=== PATIENT | male | born 1940 | race Caucasian/White ===

== ENCOUNTER 2019-07-24 09:25 | Outpatient (CLI) | payer MEDICARE, SELFPAY ==
--- NOTE | 2019-07-24 11:00 | NEURO_ITS ---
Patient Number: [id number] Impression: # Complains of gait dysfunction. History of multiple back surgeries. # Poor responses with decreased amplitude of peroneal nerves more than posterior tibial nerves. # Neurogenic changes in muscles bilaterally. # Findings suggestive of higher involvement with residual effect; could be related to surgeries. Nerve Conduction Studies Anti Sensory Summary Table Stim Site NR Peak (ms) P-T Amp (?V) Site1 Site2 Delta-P (ms) Dist (cm) Elmo (m/s) Left Sup Fibular Anti Sensory (Ant Lat Mall) 14 cm 3.9 8.4 14 cm Ant Lat Mall 3.9 16.0 41 Right Sup Fibular Anti Sensory (Ant Lat Mall) 14 cm 3.3 11.1 14 cm Ant Lat Mall 3.3 16.0 48 Left Sural Anti Sensory (Lat Mall) Right Sural Anti Sensory (Lat Mall) Calf 3.4 16.4 Calf Lat Mall 3.4 16.0 47 Motor Summary Table Stim Site NR Onset (ms) O-P Amp (mV) Site1 Site2 Delta-0 (ms) Dist (cm) Elmo (m/s) Left Peroneal Motor (Vastus Med) Ankle 5.9 0.4 Popit Ankle 8.3 35.0 42 Popit 14.2 0.1 Right Peroneal Motor (Vastus Med) Ankle 5.1 0.2 Popit Ankle 8.6 36.0 42 Popit 13.7 0.2 Left Tibial Motor (Abd Ferrari Brev) Ankle 5.5 1.2 Knee Ankle 8.3 40.0 48 Knee 13.8 1.0 Right Tibial Motor (Abd Ferrari Brev) Ankle 6.0 2.1 Knee Ankle 9.9 41.0 41 Knee 15.9 1.3 F Wave Studies NR F-Lat (ms) L-R F-Lat (ms) Left Peroneal (Mrkrs) (EDB) 59.06 0.00 Right Peroneal (Mrkrs) (EDB) 59.06 0.00 Left Tibial (Mrkrs) (Abd Hallucis) 59.85 2.46 Right Tibial (Mrkrs) (Abd Hallucis) 57.39 2.46 EMG Side Muscle Nerve Root Ins Act Fibs Amp Dur Recrt Comment Right AntTibialis Dp Br Fibular L4-5 Nml Nml Decr >12ms Reduced Right Gastroc Tibial S1-2 Nml Nml Decr >12ms Reduced Right Fibularis Long Sup Br Fibular L5-S1 Nml Nml Decr >12ms Reduced Right Flex Dig Long Tibial L5-S2 Nml Nml Nml Nml Nml Right Ext Dig Brev Dp Br Fibular L5, S1 Nml Nml Decr >12ms Reduced Left AntTibialis Dp Br Fibular L4-5 Nml Nml Decr >12ms Reduced Left Gastroc Tibial S1-2 Nml Nml Decr >12ms Reduced Left Fibularis Long Sup Br Fibular L5-S1 Nml Nml Decr >12ms Reduced Left Flex Dig Long Tibial L5-S2 Nml Nml Nml Nml Nml Left Ext Dig Brev Dp Br Fibular L5, S1 Nml Nml Decr >12ms Reduced Right QuadratusFem QuadFemoris L4-5, S1 Nml Nml Decr >12ms Reduced Left QuadratusFem QuadFemoris L4-5, S1 Nml Nml Decr >12ms Reduced MTDD
== END 2019-07-24 09:26 | disposition home or self-care (01) ==
PROVIDERS: PCP Internal Medicine
DX: M43.16 Spondylolisthesis, lumbar region (principal); G62.9 Polyneuropathy, unspecified; I99.8 Other disorder of circulatory system; R94.131 Abnormal electromyogram [EMG]
CPT/HCPCS: 95886; 95910

== ENCOUNTER 2020-04-30 08:17 | Outpatient (CLI) | payer MEDICARE, SELFPAY ==
[2020-04-30 08:38] LABS: Basophils Absolute Auto 0.1 K/mm3 (0.0-0.1); Basophils Percent Auto 1.1 % (0.2-1.2); Eosinophils Absolute Auto 0.2 K/mm3 (0-0.3); Eosinophils Percent Auto 3.3 % (0-4.4); Hematocrit 39.9 % (42.0-52.0); Hemoglobin 13.3 g/dL (14.0-18.0); Immature Granulocyte Absolute 0.02 K/mm3 (0.00-0.031); Immature Granulocyte Percent A 0.4 % (0-0.5); Lymphocytes Absolute Auto 1.06 K/mm3 (0.9-3.2); Lymphocytes Percent Auto 19.7 % (18.3-44.2); Mean Corpuscular HGB Conc 33.3 g/dl (32-36); Mean Corpuscular Hemoglobin 28.5 pg (26-34); Mean Corpuscular Volume 85.6 fl (80-100); Mean Platelet Volume 8.7 fl (7.4-10.4); Monocytes Absolute Auto 0.4 K/mm3 (0.1-0.6); Neutrophils Absolute Auto 3.6 K/mm3 (1.3-6.7); Neutrophils Percent Auto 67.5 % (45.5-73.1); Platelet Count Result 204 k/mm3 (150-375); Red Blood Count 4.66 M/mm3 (4.6-6.20); Red Cell Distribution Width 13.6 % (11.5-14.5); White Blood Count 5.4 K/mm3 (4.5-10.0)
[2020-04-30 08:51] LABS: Alanine Aminotransferase 26 U/L (4-50); Alkaline Phosphatase 92 U/L (38-126); Anion Gap 4 mmol/L (8-16); Aspartate Amino Transferase 31 U/L (17-59); Bilirubin,Total 0.5 mg/dL (0.2-1.3); Blood Urea Nitrogen 17 mg/dL (9-20); Calcium 9.3 mg/dL (8.4-10.2); Carbon Dioxide 31 mmol/L (22-30); Chloride 104 mmol/L (98-107); Cholesterol 189 mg/dL (0-200); Estimated Glomerular Filt Rate > 60; Glucose 109 mg/dL (75-110); HDL Direct 49 mg/dL; Potassium 3.9 mmol/L (3.4-5.0); Sodium 139 mmol/L (137-145); Triglycerides 89 mg/dL (<150)
[2020-04-30 09:03] LABS: LDL Cholesterol Direct 106 mg/dL
== END 2020-04-30 08:18 | disposition home or self-care (01) ==
PROVIDERS: PCP Internal Medicine; Visit Provider Nurse Practitioner
DX: I10 Essential (primary) hypertension (principal); Z13.220 Encounter for screening for lipoid disorders
CPT/HCPCS: 36415; 80053; 80061; 85025

== ENCOUNTER → 2020-07-04 00:23 | Outpatient (CLI) | payer MEDICARE, SELFPAY ==
[2020-07-05 00:17] LABS: SARS-CoV-2 RNA PCR Negative
== END ==
PROVIDERS: PCP Internal Medicine; Visit Provider Internal Medicine Gastroenterology
DX: Z01.812 Encounter for preprocedural laboratory examination (principal); Z20.822 Contact with and (suspected) exposure to COVID-19
CPT/HCPCS: C9803; U0003; U0005

== ENCOUNTER 2020-07-08 01:02 | Day surgery (SDC) | payer MEDICARE, SELFPAY ==
[2020-06-18 10:38] VITALS: BMI 34.4
[2020-07-08 06:30] VITALS: BP 136/68; PULSE 84; RESP 18; TEMP 36.4; O2SAT 99
[2020-07-08 06:42] VITALS: BMI 37.3
[2020-07-08] MEDS: LACTATED RINGERS 1,000 ML 150 ML IV CONT (07:11)
--- NOTE | 2020-07-08 07:21 | WPDANESEPPF ---
Anes - Initial Pre Proc Eval Procedure: Operation Date: 07/08/20 08:00 Proposed Procedures p Screening Colonoscopy - Timoteo Farrell MD Date/Time: 07/08/20 07:21 Surgeon: Timoteo Farrell MD Pre Op Diagnosis: Neoplasm Screening Patient Data Age: 79 Gender: M Height: 5 ft 10 in Weight: 118 kg Allergies Allergy/AdvReac Type Severity Reaction Status Date / Time naproxen Allergy Unknown Hives Verified 07/08/20 06:42 Home Medications Medication Instructions Recorded Confirmed Type hydrochlorothiazide 12.5 mg tablet 12.5 mg PO DAILY #90 tablet 02/11/20 06/18/20 Rx aspirin 325 mg tablet 325 mg PO DAILY 05/07/20 06/18/20 History diclofenac potassium 50 mg tablet 50 mg PO BID PRN #30 tablet 05/07/20 06/18/20 Rx zinc 50 mg tablet 50 mg PO DAILY 05/07/20 06/18/20 History losartan 100 mg tablet 100 mg PO DAILY #90 tablet 05/13/20 06/18/20 Rx hydroxyzine HCl 50 mg tablet 50 mg PO QPM #30 tablet 05/20/20 06/18/20 Rx amlodipine 5 mg tablet 5 mg PO DAILY #90 tablet 06/08/20 06/18/20 Rx doxazosin 8 mg tablet 8 mg PO DAILY #90 tablet 06/08/20 06/18/20 Rx sodium,potassium,mag sulfates See Rx Instructions .ROUTE 06/10/20 Rx [Suprep Bowel Prep Kit] .COMPLEX #1 ml Patient hx anesthesia problems: none Family hx anesthesia problems: none PMFSH Past Medical History Medical History Carpal tunnel syndrome HTN (hypertension) Thoracic aortic aneurysm Surgical History Surgical History H/O eye surgery H/O knee surgery H/O sinus surgery History of appendectomy History of back surgery History of carpal tunnel surgery History of nasal surgery Family History Family History Father Diabetes mellitus Heart attack Lung cancer Mother Family history of Alzheimer's disease Social History Social History Years smoked: 10 Smoking status: Former smoker Tobacco type: cigarettes Alcohol intake: current Alcohol use details: rarely Living arrangements: with family Gender identity (if verbalized by the patient): Male Spiritual care concerns: No Anes - Eval Final PreProcedure Day of Procedure 07/08/20 07:21 Patient weight: obese Heart: regular rate and rhythm Lungs: clear to auscultation Airway: Mallampati scale class II Neurological: alert and oriented Last oral intake: >/= 8 hours ASA classification: III Emergent: no Anesthetic plan: proceed Anesthesia type and monitoring: general GIVS and standard monitoring Informed Consent: The patient's anesthetic plan and its attendant risks and benefits were discussed with the patient/family/POA. Questions were solicited and answers provided to the satisfaction of the patient/family/POA.
--- NOTE | 2020-07-08 08:22 | PM.HPGS ---
History of Present Illness History of Present Illness Consent: Risks, benefits, and alternatives have been discussed and questions answered. Patient agrees to proceed with procedure. Chief complaint: Neoplasm Screening Narrative: Hilario Chilel is a 79 year old male here for screening colonoscopy, had polyps in the past but last colonoscopy 2013 without polyps Review of Systems Constitutional: Constitutional: Denies headache(s) and Denies weakness Eyes: Eyes: Denies blurry vision ENT: Reports Normal hearing present, Denies headache(s) and Denies neck pain Cardiovascular: Cardiovascular: Denies chest pain and Denies dyspnea Respiratory: Respiratory: Denies dyspnea Gastrointestinal: Gastrointestinal: Reports no additional gastrointestinal complaints Genitourinary: Genitourinary: Denies dysuria Musculoskeletal: Musculoskeletal: Denies neck pain Integumentary/Breasts: Skin/Breast: Denies dry skin Neurologic: Reports Normal hearing present, Denies headache(s) and Denies weakness Psychiatric: Psychiatric: Denies anxiety Endocrine: Endocrine: Denies change in body appearance Hematologic/Lymphatic: Hematologic/Lymphatic: Denies easy bleeding Allergic/Immunologic: Allergic/Immunologic: Denies urticaria PMFSH Past Medical History Medical History Carpal tunnel syndrome HTN (hypertension) Thoracic aortic aneurysm Surgical History Surgical History H/O eye surgery H/O knee surgery H/O sinus surgery History of appendectomy History of back surgery History of carpal tunnel surgery History of nasal surgery Family History Family History Father Diabetes mellitus Heart attack Lung cancer Mother Family history of Alzheimer's disease Social History Social History Years smoked: 10 Smoking status: Former smoker Tobacco type: cigarettes Alcohol intake: current Alcohol use details: rarely Living arrangements: with family Gender identity (if verbalized by the patient): Male Spiritual care concerns: No Meds Home Medications and Allergies Home Medications Medication Instructions Recorded Confirmed Type hydrochlorothiazide 12.5 mg tablet 12.5 mg PO DAILY #90 tablet 02/11/20 06/18/20 Rx aspirin 325 mg tablet 325 mg PO DAILY 05/07/20 06/18/20 History diclofenac potassium 50 mg tablet 50 mg PO BID PRN #30 tablet 05/07/20 06/18/20 Rx zinc 50 mg tablet 50 mg PO DAILY 05/07/20 06/18/20 History losartan 100 mg tablet 100 mg PO DAILY #90 tablet 05/13/20 07/08/20 Rx hydroxyzine HCl 50 mg tablet 50 mg PO QPM #30 tablet 05/20/20 06/18/20 Rx amlodipine 5 mg tablet 5 mg PO DAILY #90 tablet 06/08/20 06/18/20 Rx doxazosin 8 mg tablet 8 mg PO DAILY #90 tablet 06/08/20 06/18/20 Rx sodium,potassium,mag sulfates See Rx Instructions .ROUTE 06/10/20 Rx [Suprep Bowel Prep Kit] .COMPLEX #1 ml Allergies Allergy/AdvReac Type Severity Reaction Status Date / Time naproxen Allergy Unknown Hives Verified 07/08/20 06:42 Exam Const: General: comfortable and no acute distress HENMT: General nose exam: Normal nares present Eyes: General: appearance normal, both eyes and all related structures Neck: Neck: no JVD Resp: Auscultation: clear to auscultation bilaterally Cardio: Rate: regular rate Rhythm: regular rhythm GI: Inspection: non-distended GI Palp: Yes Soft to palpation Skin: General skin exam: normal color Neuro: General: gait normal Speech: normal speech Extrem: General: normal to inspection Psych: Mental Status: mental status grossly normal Assessment and Plan Assessment and plan (1) Screening for colon cancer: Code(s): Z12.11 - Encounter for screening for malignant neoplasm of colon Status: Acute Assessment and Plan: proceed with colonoscopy
[2020-07-08 08:58] VITALS: BP 121/78; PULSE 59; RESP 13; O2SAT 100
[2020-07-08 09:08] VITALS: BP 131/82; PULSE 69; RESP 21; O2SAT 100
[2020-07-08 09:18] VITALS: BP 124/73; PULSE 72; RESP 18; O2SAT 100
== END 2020-07-08 09:25 | disposition home or self-care (01) ==
PROVIDERS: PCP Internal Medicine; Visit Provider Internal Medicine Gastroenterology
PROC: 0DJD8ZZ Inspection of Lower Intestinal Tract, Via Natural or Artificial Opening Endoscopic (ICD-10-PCS; CPT 45378; principal; 2020-07-08 08:00)
DX: Z12.11 Encounter for screening for malignant neoplasm of colon (principal); Z86.010 Personal history of colon polyps; I10 Essential (primary) hypertension; I71.2 Thoracic aortic aneurysm, without rupture; Z87.891 Personal history of nicotine dependence; E66.9 Obesity, unspecified; Z68.37 Body mass index [BMI] 37.0-37.9, adult
CPT/HCPCS: G0105; J2704; J7120

== ENCOUNTER 2020-08-13 08:32 | Outpatient (CLI) | payer MEDICARE, SELFPAY ==
--- NOTE | ~2020-08-13 | XR_ITS ---
EXAMINATION: CT abdomen pelvis wo/w con, XR abdomen/kub 1V DATE: 08/13/2020 09:22 INDICATION: Gross hematuria. TECHNIQUE: 1. Computed tomography (CT) of the abdomen and pelvis was performed without intravenous contrast. CT of the abdomen and pelvis was then performed with a total of 130 mL Omnipaque-350 intravenous contras t using a double-bolus technique for simultaneous opacification of the renal parenchyma and renal col lecting system. The dose-length product was 3039.12 mGy-cm. 2. A single view of the abdomen was obtained on 2 radiographs. COMPARISON: None FINDINGS: CT: Calcified right lower lobe nodule, calcified right hilar lymph nodes and a few tiny hepatic and splen ic calcifications, all consistent with old granulomatous disease. Heart size is normal. No pericardia l or pleural effusion. Enlargement of the central pulmonary arteries which can be seen with pulmonary arterial hypertension. A few subcentimeter low-attenuation hepatic cysts. Gallbladder and pancreas a re normal. Bilateral adrenal nodules measuring 1.7 cm with low-attenuation consistent with adenoma on the left and measuring 1.5 cm on the right without change since 2018 also most likely representing a n adenoma. Kidneys enhance symmetrically. Bilateral low-attenuation nonenhancing renal cysts the larger on the r ight measuring 3.3 cm maximal diameter. No urolithiasis or hydronephrosis. Partially duplicated left renal collecting system with separate renal pelvises sees draining the upper and lower poles of the l eft kidney which fuse to a single draining ureter. Left renal collecting system and ureter is opacifi ed in its entirety with no evident urothelial irregularities. The majority of the small caliber decom pressed right ureter remains unopacified with contrast. There is mild haziness and stranding in the f at surrounding the bladder suggesting cystitis. Mildly irregular mucosal contour in the posterior lefty dder which could be related to cystitis, malignancy or trabeculation related to chronic outlet obstru ction from the enlarged prostate which measures up to 5.1 x 4.3 cm. No abnormal bowel wall thickening or obstruction. The appendix is not visualized. No free intraperito lorena gas or fluid. No pathologically enlarged abdominal or pelvic lymphadenopathy. There is calcified atherosclerosis of the aorta and many of the other arteries. Incidentally noted retroaortic left ana maria al vein. Mild lumbar levoscoliosis with severe spondylosis. Postoperative change of prior L3-L5 meme ectomies and anterior spinal fusion with bone graft cages at L4-L5 and L5-S1. Posterior spinal fusion with bilateral plate and pedicle screw fixations at L5-S1. Additional posterior fusion with solid sabino ne grafting but without associated instrumentation extending cephalad across the facet joints to the level of L2. Interspinous process device at L1-L2. Moderate bilateral hip osteoarthritis. ABDOMEN RADIOGRAPH(S): A couple phleboliths in the left hemipelvis. Normal bowel gas pattern. Postoperative changes in the l umbar spine as previously detailed. IMPRESSION: 1. Bilateral renal cysts. Otherwise normal kidneys with no urolithiasis. 2. Irregular mucosal contour the posterior bladder with surrounding inflammatory stranding. Appearanc e suggests trabeculation and cystitis likely related to chronic outlet obstruction from the enlarged prostate. Correlate with urinalysis and consider cystoscopy to exclude a bladder urothelial malignanc y. Reviewed, dictated and finalized at location B. IMPRESSION: 1. Bilateral renal cysts. Otherwise normal kidneys with no urolithiasis. 2. Irregular mucosal contour the posterior bladder with surrounding inflammator y stranding. Appearance suggests trabeculation and cystitis likely
[2020-08-13 09:00] LABS: Estimated Glomerular Filt Rate > 60
== END 2020-08-13 08:33 | disposition home or self-care (01) ==
PROVIDERS: PCP Internal Medicine; Visit Provider Urology
DX: R31.0 Gross hematuria (principal); N28.1 Cyst of kidney, acquired
CPT/HCPCS: 74018; 74178; Q9967

== ENCOUNTER 2020-09-17 08:14 | Outpatient (CLI) | payer MEDICARE, SELFPAY ==
--- NOTE | 2020-09-17 08:00 | ECG_ITS ---
Measurements Intervals [place] Rate: 65 P: 78 HI: 167 QRS: 9 QRSD: 118 T: 30 QT: 411 QTc: 430 Interpretive Statements SINUS RHYTHM MINIMAL Q WAVES- HIGH LATERAL LEADS BASELINE ARTIFACT- I, III, AVR, AVL, AVF, V6 BORDERLINE ECG Electronically Signed On 09-17-2020 9:16:21 CDT by Chapin Chung D.O.
[2020-09-17 08:45] LABS: Basophils Absolute Auto 0.1 K/mm3 (0.0-0.1); Basophils Percent Auto 0.9 % (0.2-1.2); Eosinophils Absolute Auto 0.2 K/mm3 (0-0.3); Eosinophils Percent Auto 2.7 % (0-4.4); Hematocrit 40.4 % (42.0-52.0); Hemoglobin 13.4 g/dL (14.0-18.0); Immature Granulocyte Absolute 0.01 K/mm3 (0.00-0.031); Immature Granulocyte Percent A 0.2 % (0-0.5); Lymphocytes Absolute Auto 1.15 K/mm3 (0.9-3.2); Lymphocytes Percent Auto 19.7 % (18.3-44.2); Mean Corpuscular HGB Conc 33.2 g/dl (32-36); Mean Corpuscular Volume 84.3 fl (80-100); Mean Platelet Volume 8.6 fl (7.4-10.4); Monocytes Absolute Auto 0.4 K/mm3 (0.1-0.6); Neutrophils Absolute Auto 4.1 K/mm3 (1.3-6.7); Neutrophils Percent Auto 69.5 % (45.5-73.1); Platelet Count Result 210 k/mm3 (150-375); Red Blood Count 4.79 M/mm3 (4.6-6.20); Red Cell Distribution Width 13.8 % (11.5-14.5); White Blood Count 5.8 K/mm3 (4.5-10.0)
[2020-09-17 08:58] LABS: INR 0.9; Partial Thromboplastin Time 33.3 SECONDS (22.3-36.8)
[2020-09-17 09:05] LABS: Anion Gap 6 mmol/L (8-16); Blood Urea Nitrogen 17 mg/dL (9-20); Calcium 8.7 mg/dL (8.4-10.2); Carbon Dioxide 30 mmol/L (22-30); Chloride 105 mmol/L (98-107); Estimated Glomerular Filt Rate > 60; Glucose 104 mg/dL (75-110); Potassium 3.8 mmol/L (3.4-5.0); Sodium 141 mmol/L (137-145)
== END 2020-09-17 08:15 | disposition home or self-care (01) ==
LOC: ANHSURGERY 08:19
PROVIDERS: PCP Internal Medicine; Visit Provider Urology
DX: R31.0 Gross hematuria (principal); I10 Essential (primary) hypertension; Z01.818 Encounter for other preprocedural examination; I45.9 Conduction disorder, unspecified
CPT/HCPCS: 36415; 80048; 85025; 85610; 85730; 93005

== ENCOUNTER → 2020-09-19 06:56 | Outpatient (CLI) | payer MEDICARE, SELFPAY ==
[2020-09-19 20:53] LABS: SARS-CoV-2 RNA PCR Negative
== END ==
PROVIDERS: PCP Internal Medicine; Visit Provider Urology
DX: Z01.812 Encounter for preprocedural laboratory examination (principal); Z20.822 Contact with and (suspected) exposure to COVID-19
CPT/HCPCS: C9803; U0003; U0005

== ENCOUNTER 2020-09-22 01:31 | Day surgery (SDC) | payer MEDICARE, SELFPAY ==
[2020-09-11 14:26] VITALS: BMI 36.3
[2020-09-22] VITALS (15 sets, daily range): BP systolic 112–147; BP diastolic 58–82; PULSE 60–74; RESP 10–20; TEMP 36.3–37.1; O2SAT 97–100; BMI 37.3
[2020-09-22] MEDS: LACTATED RINGERS 1,000 ML 30 ML IV CONT (07:12)
--- NOTE | 2020-09-22 07:12 | WPDHPUPDATE1 ---
History and Physical Update Update Date/Time: 09/22/20 07:12 History and Physical has been reviewed, including an updated exam of the patient. There are NO changes in the patient's condition. Risks, benefits, and alternatives have been discussed and questions answered. Patient agrees to proceed with procedure. Proceed with cysto, bladder biopsy with fulguration
--- NOTE | 2020-09-22 07:22 | WPDANESEPPF ---
Anes - Initial Pre Proc Eval Procedure: Operation Date: 09/22/20 08:30 Proposed Procedures p Cystoscopy Bladder Biopsy Fulguration, - Kuldip Tong MD s Possible Trans Urethral Resection Bladder Tumor - Kuldip Tong MD Date/Time: 09/22/20 07:22 Surgeon: Kuldip Tong MD Pre Op Diagnosis: gross hematuria Patient Data Age: 80 Gender: M Height: 1.78 m Weight: 117.8 kg Last Vital Signs Temp 37.1 C 09/22/20 07:19 Pulse 65 09/22/20 07:19 Resp 20 09/22/20 07:19 BP 136/81 09/22/20 07:19 Pulse Ox 99 09/22/20 07:19 Allergies Allergy/AdvReac Type Severity Reaction Status Date / Time naproxen Allergy Unknown Hives Verified 09/22/20 06:57 Home Medications Medication Instructions Recorded Confirmed Type aspirin 325 mg tablet 325 mg PO DAILY 05/07/20 09/22/20 History diclofenac potassium 50 mg tablet 50 mg PO BID PRN #30 tablet 05/07/20 09/22/20 Rx zinc 50 mg tablet 50 mg PO DAILY 05/07/20 09/22/20 History hydroxyzine HCl 50 mg tablet 50 mg PO QPM #30 tablet 08/25/20 09/22/20 Rx amlodipine 5 mg PO QAM 09/11/20 09/22/20 History apple cider vinegar 300 mg PO TID 09/11/20 09/22/20 History chromium-brindal scales [Garcinia 1 tablet PO TID 09/11/20 09/22/20 History Cambogia] doxazosin 8 mg PO HS 09/11/20 09/22/20 History hydrochlorothiazide 12.5 mg PO QAM 09/11/20 09/22/20 History hydrocortisone 1 applic TOPICAL BID PRN 09/11/20 09/22/20 History lactobacillus combination no.8 3,000 mmu cells PO DAILY 09/11/20 09/22/20 History [Adult Probiotic] losartan 100 mg PO QAM 09/11/20 09/22/20 History vit C,Y-Pq-ngspe-lutein-zeaxan 1 tablet PO BID 09/11/20 09/22/20 History [PreserVision AREDS-2] ECG: Date of Service: 09/17/20 Procedure(s): CA 12 lead EKG Accession Number(s): [id number] cc: ~ ADDENDUM Measurements Intervals [place] Rate: 65 P: 78 GA: 167 QRS: 9 QRSD: 118 T: 30 QT: 411 QTc: 430 Interpretive Statements SINUS RHYTHM INTRAVENTRICULAR CONDUCTION DELAY MINIMAL Q WAVES- HIGH LATERAL LEADS BASELINE ARTIFACT- I, III, AVR, AVL, AVF, V6 BORDERLINE ECG Electronically Signed On 09-17-2020 9:16:36 CDT by Chapin Chung D.O. Patient hx anesthesia problems: none Family hx anesthesia problems: none [facility] Past Medical History Medical History (Updated 09/22/20 @ 07:26 by Niko Johnson MD) Arthritis Bladder tumor BPH (benign prostatic hyperplasia) Carpal tunnel syndrome Chronic GERD HTN (hypertension) CARMELINA (obstructive sleep apnea) Thoracic aortic aneurysm 4.7 cm in 2018 Surgical History Surgical History H/O eye surgery H/O knee surgery H/O sinus surgery History of appendectomy History of back surgery History of carpal tunnel surgery History of nasal surgery Family History Family History Father Diabetes mellitus Heart attack Lung cancer Mother Family history of Alzheimer's disease Social History Social History Smoking packs per day: 1 Smoking cigarettes per day: 20.0 Years smoked: 10 Smoking pack-years: 10.00 Smoking status: Former smoker Tobacco type: cigarettes Smoking end date: 04/28/1968 Alcohol intake: former Alcohol use details: SOCIALLY IN PAST Substance use: never Living arrangements: with family Additional living arrangements comments: Gender identity (if verbalized by the patient): Male Spiritual care concerns: No Anes - Eval Final PreProcedure Day of Procedure 09/22/20 07:22 Patient weight: obese Heart: regular rate and
[2020-09-22] MEDS: ceFAZolin 2 GM/D5W 50 ML 2 GM/50 ML BAG IVPB (08:29)
[2020-09-22] MEDS: LIDOCAINE HCL 2% GEL UROJET 10 ML PKG MUCOUS MEM (08:51)
--- NOTE | 2020-09-22 09:18 | PM.PROC ---
Procedure Note - Detailed Date of procedure: 09/22/20 Pre-op diagnosis: gross hematuria Post-op diagnosis: same Procedure performed: Transurethral resection of prostate with bladder fulguration Description of procedure: Patient is taken the operative suite and correctly identified. Once anesthesia was obtained was placed in dorsal lithotomy position prepped draped usual sterile fashion. Twenty-two Portuguese scope was inserted into the urethra. There are no urethral strictures. The prostate is enlarged with lateral lobe hypertrophy and a very elevated median bar area was very difficult to get the scope over the ridge into the bladder. Once this was accomplished the bladder was inspected he had some little generalized oozing on the left lateral wall from vascular. It was hard area to reach into and thus we simply used the rollerball to fulgurate this area. No other discrete papillary tumors were noted at this time. He did have quite a bit of edema around the bladder neck and then had quite a bit of oozing from this area. At this point time given his prior symptoms with a hematuria was decided proceed with resection of the bolus edema area. This required transurethral resection of his prostate to completely get adequate control. This was performed from the bladder neck to the verumontanum. Hemostasis was achieved with electrocautery. At termination of procedure was good hemostasis and he had an open channel. 2% viscous lidocaine was inserted into the urethra. Twenty-four Portuguese [address] was then placed. 20 cc was placed in the balloon. Patient will be admitted for CBI postoperatively. Anesthesia: GLMA Surgeon: Kuldip Tong MD Drains: Yes Packing: No Pathology: yes Complications: No immediate complications Condition: stable Disposition: PACU
--- NOTE | 2020-09-22 09:50 | SUR.PHASEI ---
O2 removed at 0948.
--- NOTE | 2020-09-22 09:58 | SUR.PHASEI ---
Patient is stable. We are just waiting for room to be ready.
[2020-09-22] MEDS: DEXTROSE 5%/LACTATED RINGERS 1,000 ML 125 ML IV CONT ×2 (11:30→21:55)
--- NOTE | 2020-09-22 11:38 | PC.NURSE ---
This patient, Hilario Chilel, was admitted to 3 [facility] Surg Room 305-01. Report received from BRICE Dooley in PACU. Patient/family oriented to hospital policies and general routines including ID bracelet, bed and alarms, visiting hours, pain management, procedures, bathroom and other care routines, personal items, smoking policy, room service/diet, and visiting hours. Information on how to activate the Rapid Response Team has been discussed. Patient/Family are encouraged to report perceived risks to care and to ask questions if they do not understand what they are told or what they should do.
[2020-09-22] MEDS: hydroCHLOROthiazide 12.5 MG CAPSULE PO (12:34)
[2020-09-22] MEDS: LOSARTAN POTASSIUM 100 MG TABLET PO (13:32)
[2020-09-22] MEDS: HYOSCYAMINE SULFATE 0.125 MG TABLET SUBLINGUAL (16:40)
[2020-09-22] MEDS: DOCUSATE SODIUM 100 MG CAPSULE PO (16:40)
[2020-09-22] MEDS: hydrOXYzine HCL 25 MG TABLET 50 MG PO (17:38)
[2020-09-22] MEDS: DOXAZOSIN MESYLATE 4 MG TABLET 8 MG PO (21:57)
[2020-09-23] MEDS: HYDROcodone/acetaminophen (*CRX) 5-325 MG TABLET 1 TAB PO ×2 (01:55→12:17)
[2020-09-23 04:00] VITALS: BP 124/58; PULSE 65; RESP 18; TEMP 36.8; O2SAT 98
[2020-09-23 06:31] LABS: Hematocrit 34.7 % (42.0-52.0); Hemoglobin 11.4 g/dL (14.0-18.0)
[2020-09-23 06:41] LABS: Anion Gap 1 mmol/L (8-16); Blood Urea Nitrogen 14 mg/dL (9-20); Calcium 8.5 mg/dL (8.4-10.2); Carbon Dioxide 31 mmol/L (22-30); Chloride 106 mmol/L (98-107); Estimated CRCL calculation 93 ml/min; Estimated Glomerular Filt Rate > 60; Glucose 114 mg/dL (75-110); Potassium 3.9 mmol/L (3.4-5.0); Sodium 138 mmol/L (137-145)
[2020-09-23 08:00] VITALS: BP 152/79; PULSE 62; RESP 20; TEMP 36.6; O2SAT 100
[2020-09-23] MEDS: amLODIPine BESYLATE 5 MG TABLET PO (08:11)
[2020-09-23] MEDS: ACIDOPHILUS/BULGARICUS CHEWABLE TABLET 1 TABLET PO (08:12)
[2020-09-23] MEDS: LOSARTAN POTASSIUM 100 MG TABLET PO (08:12)
[2020-09-23] MEDS: hydroCHLOROthiazide 12.5 MG CAPSULE PO (08:13)
[2020-09-23] MEDS: CEPHALEXIN 500 MG CAPSULE PO ×2 (08:13→13:00)
[2020-09-23] MEDS: DOCUSATE SODIUM 100 MG CAPSULE PO (08:13)
--- NOTE | 2020-09-23 09:21 | WPDANESPN ---
Anes - Prog Note Post-Op Date/Time: 09/23/20 09:21 Cardiovascular status: normal Respiratory status: normal Airway patency: baseline Mental status: baseline Post-Op hydration status: normal Vital Signs: Last Vital Signs Temp 36.6 C 09/23/20 08:00 Pulse 62 09/23/20 08:00 Resp 20 09/23/20 08:00 BP 152/79 H 09/23/20 08:00 Pulse Ox 100 09/23/20 08:00 Pain Score (VAS): 2 I/O: Intake & Output 09/22/20 09/23/20 09/23/20 23:59 07:59 15:59 Intake Total 1290 775 225 Output Total 1450 1200 Balance -160 -425 225 Laboratory Tests 09/23/20 05:51 09/23/20 05:51 09/23/20 09/23/20 05:51 05:51 Hgb 11.4 L Hct 34.7 L Sodium 138 Potassium 3.9 Chloride 106 Carbon Dioxide 31 H Anion Gap 1 L BUN 14 Creatinine 0.70 Estim Creat Clear Calc 93 Estimated GFR > 60 Glucose 114 H Calcium 8.5 Post-procedural complaints: none Patient Feedback: Patient satisfied with anesthetic care.
[2020-09-23 12:00] VITALS: BP 146/72; PULSE 75; RESP 20; TEMP 36.7; O2SAT 100
[2020-09-23] MEDS: HYOSCYAMINE SULFATE 0.125 MG TABLET SUBLINGUAL (12:17)
[2020-09-23 14:00] VITALS: BP 137/64; PULSE 77; RESP 20; TEMP 36.6; O2SAT 100
--- NOTE | 2020-09-23 15:30 | WPDUROPN2 ---
Progress Note: A&P Assessment and Plan (1) BPH (benign prostatic hyperplasia): Code(s): N40.0 - Benign prostatic hyperplasia without lower urinary tract symptoms Status: Acute Assessment and Plan: ok to discharge home with the hooper, follow up on September 28 at 10:45 am for hooper removal Subjective Subjective Date/Time Seen: 09/23/20 15:30 POD #1 TURP Patient doing well, tolerating diet, up to chair and ambulating in the room. His urine has remained clear all day without CBI and with activity. Review of Systems Cardiovascular: Cardiovascular: Reports no additional cardiovascular complaints and Denies chest pain Respiratory: Respiratory: Reports no additional respiratory complaints Gastrointestinal: Gastrointestinal: Denies abdominal pain, Denies nausea and Denies vomiting Genitourinary: Genitourinary: Denies hematuria Exam Resp: Effort & Inspection: normal respiratory effort Cardio: Rate: regular rate GI: GI Palp: Yes Soft to palpation and No Tenderness to palpation present (GI) : General: Yes no CVA tenderness Urinary Catheter: Urinary Catheter: patent and draining and urine clear Extrem: General: no edema Objective Data Vital Signs Vital Signs: Vital Signs - 24 hr 09/22/20 16:00 09/22/20 19:55 09/22/20 23:35 Temperature 97.4 F L 97.9 F 98.2 F Pulse Rate 71 66 62 Respiratory Rate 18 18 18 Blood Pressure 138/58 L 123/72 126/61 Pulse Oximetry 99 98 97 09/23/20 04:00 09/23/20 08:00 09/23/20 12:00 Temperature 98.3 F 97.8 F 98.1 F Pulse Rate 65 62 75 Respiratory Rate 18 20 20 Blood Pressure 124/58 L 152/79 H 146/72 H Pulse Oximetry 98 100 100 09/23/20 14:00 Temperature 97.8 F Pulse Rate 77 Respiratory Rate 20 Blood Pressure 137/64 Pulse Oximetry 100 Intake/Output Intake/Output: Intake & Output 09/20/20 09/21/20 09/22/20 09/23/20 23:59 23:59 23:59 23:59 Intake Total 2120 1480 Output Total 3500 1200 Balance -1380 280 Meds/Results Medications: Active Medications Generic Name Dose Route Start Last Admin Trade Name Freq PRN Reason Stop Dose Admin Hydrocodone Bitart/Acetaminophen 1 tab 09/22/20 09:20 09/23/20 12:17 Hydrocodone/Acetaminophen (*Crx) 5-325 Mg Tablet PO 1 tab Q4H PRN Administration Pain Rated 1-6 Amlodipine Besylate 5 mg 09/23/20 09:00 09/23/20 08:11 Amlodipine Besylate 5 Mg Tablet PO 5 mg QAM MAXIMILIANO Administration Cephalexin HCl 500 mg 09/23/20 09:00 09/23/20 13:00 Cephalexin 500 Mg Capsule PO 500 mg QID MAXIMILIANO Administration Docusate Sodium 100 mg 09/22/20 17:00 09/23/20 08:13 Docusate Sodium 100 Mg Capsule PO 100 mg BID MAXIMILIANO Administration Doxazosin Mesylate 8 mg 09/22/20 21:00 09/22/20 21:57 Doxazosin Mesylate 4 Mg Tablet PO 8 mg HS MAXIMILIANO Administration Hydrochlorothiazide 12.5 mg 09/22/20 11:05 09/23/20 08:13 Hydrochlorothiazide 12.5 Mg Capsule PO 12.5 mg QAM [facility] Administration Hydrocortisone 1 applic 09/22/20 10:51 Hydrocortisone (Proctozone-Hc) 2.5% Cream 30 Gm Tube TOPICAL BID PRN Itching Hydroxyzine HCl 50 mg 09/22/20 18:00 09/22/20 17:38 Hydroxyzine Hcl 25 Mg Tablet PO 50 mg QPM MAXIMILIANO Administration Hyoscyamine 0.125 mg 09/22/20 09:20 09/23/20 12:17 Hyoscyamine Sulfate 0.125 Mg Tablet SUBLINGUAL 0.125 mg Q6H PRN Administration Bladder Spasm Lactobacillus Acidophilus 1 tablet 09/23/20 09:00 09/23/20 08:12 Acidophilus/Bulgaricus Chewable Tablet PO 1 tablet DAILY MAXIMILIANO Administration Losartan Potassium 100 mg 09/22/20 11:10 09/23/20 08:12 Losartan Potassium 100 Mg Tablet PO 100 mg QAM [facility] Administration Morphine Sulfate 2 mg 09/22/20 09:20 Morphine Sulfate (*Crx) 2 Mg/Ml Inj IV PUSH Q2H PRN Pain Rated 7-10 Naloxone HCl 0.1 mg 09/22/20 09:20 Naloxone Hcl 0.4 Mg/Ml Vial IV PUSH Q2M PRN Opiate Reversal Non-Formulary Medication 50 mg 09/22/20 10:51 Diclof
== END 2020-09-23 16:45 | disposition home or self-care (01) ==
LOC: ANHSURGERY 06:08 → ANH3MEDSUR 10:52
PROVIDERS: PCP Internal Medicine; Visit Provider Urology
PROC: 0TBB8ZX Excision of Bladder, Via Natural or Artificial Opening Endoscopic, Diagnostic (ICD-10-PCS; CPT 52204; principal; 2020-09-22 08:30)
PROC: 0TBB8ZZ Excision of Bladder, Via Natural or Artificial Opening Endoscopic (ICD-10-PCS; CPT 52601; 2020-09-22 08:30)
DX: N40.0 Benign prostatic hyperplasia without lower urinary tract symptoms (principal); N34.2 Other urethritis; N30.81 Other cystitis with hematuria; Z87.440 Personal history of urinary (tract) infections; I10 Essential (primary) hypertension; G47.33 Obstructive sleep apnea (adult) (pediatric); E66.9 Obesity, unspecified; Z68.37 Body mass index [BMI] 37.0-37.9, adult; Z87.891 Personal history of nicotine dependence
CPT/HCPCS: 52601; 52234; 36415; 80048; 85014; 85018; 88305; A9270; J0690; J2405; J2704; J3010; J7120; J7121

== ENCOUNTER 2021-04-27 15:12 | Outpatient (CLI) | payer MEDICARE, SELFPAY ==
--- NOTE | ~2021-04-27 | US_ITS ---
EXAMINATION: US venous doppler LE RT DATE: 04/27/2021 16:07 INDICATION: Right lower limb swelling. TECHNIQUE: Grayscale ultrasound images without and with compression and Doppler ultrasound images of the right lower extremity veins were obtained. COMPARISON: None. FINDINGS: The visualized portions of right common femoral vein, profunda (deep) femoral vein, femoral vein, pop liteal vein, peroneal veins, posterior tibial veins, and greater saphenous vein outflow are patent. S ubcutaneous edema is noted in the calf. IMPRESSION: 1. No deep venous thrombosis. Reviewed, dictated and finalized at location A. DESIGN MECHANICAL ENGINEER
== END 2021-04-27 15:13 | disposition home or self-care (01) ==
PROVIDERS: PCP Internal Medicine; Visit Provider Nurse Practitioner
DX: R60.9 Edema, unspecified (principal); M79.661 Pain in right lower leg
CPT/HCPCS: 93971

== ENCOUNTER 2021-07-27 06:48 | Outpatient (CLI) | payer MEDICARE, SELFPAY ==
[2021-07-27 07:52] LABS: Basophils Absolute Auto 0.1 K/mm3 (0.0-0.1); Basophils Percent Auto 0.9 % (0.2-1.2); Eosinophils Absolute Auto 0.2 K/mm3 (0-0.3); Eosinophils Percent Auto 3.1 % (0-4.4); Hematocrit 37.8 % (42.0-52.0); Hemoglobin 12.6 g/dL (14.0-18.0); Immature Granulocyte Absolute 0.01 K/mm3 (0.00-0.031); Immature Granulocyte Percent A 0.1 % (0-0.5); Lymphocytes Absolute Auto 1.25 K/mm3 (0.9-3.2); Lymphocytes Percent Auto 18.7 % (18.3-44.2); Mean Corpuscular HGB Conc 33.3 g/dl (32-36); Mean Corpuscular Hemoglobin 27.3 pg (26-34); Mean Corpuscular Volume 81.8 fl (80-100); Mean Platelet Volume 9.5 fl (7.4-10.4); Monocytes Absolute Auto 0.6 K/mm3 (0.1-0.6); Monocytes Percent Auto 9.3 % (2.6-8.5); Neutrophils Absolute Auto 4.5 K/mm3 (1.3-6.7); Neutrophils Percent Auto 67.9 % (45.5-73.1); Platelet Count Result 214 k/mm3 (150-375); Red Blood Count 4.62 M/mm3 (4.6-6.20); Red Cell Distribution Width 14.8 % (11.5-14.5); White Blood Count 6.7 K/mm3 (4.5-10.0)
[2021-07-27 08:07] LABS: Alanine Aminotransferase 24 U/L (4-50); Albumin Level 3.9 g/dL (3.5-5.1); Alkaline Phosphatase 92 U/L (38-126); Anion Gap 7 mmol/L (8-16); Aspartate Amino Transferase 26 U/L (17-59); Bilirubin,Total 0.5 mg/dL (0.2-1.3); Blood Urea Nitrogen 14 mg/dL (9-20); Calcium 8.6 mg/dL (8.4-10.2); Carbon Dioxide 29 mmol/L (22-30); Chloride 105 mmol/L (98-107); Cholesterol 173 mg/dL (0-200); Estimated Glomerular Filt Rate > 60; Glucose 104 mg/dL (65-110); HDL Direct 43 mg/dL; Potassium 3.1 mmol/L (3.4-5.0); Sodium 141 mmol/L (137-145); Triglycerides 50 mg/dL (<150)
[2021-07-27 08:25] LABS: LDL Cholesterol Direct 90 mg/dL
== END 2021-07-27 06:49 | disposition home or self-care (01) ==
LOC: ANHLAB 06:53
PROVIDERS: PCP Internal Medicine; Visit Provider Nurse Practitioner
DX: I10 Essential (primary) hypertension (principal); Z13.220 Encounter for screening for lipoid disorders
CPT/HCPCS: 36415; 80053; 80061; 85025

== ENCOUNTER 2021-08-10 06:41 | Outpatient (CLI) | payer MEDICARE, SELFPAY ==
[2021-08-10 07:07] LABS: Anion Gap 5 mmol/L (8-16); Blood Urea Nitrogen 18 mg/dL (9-20); Carbon Dioxide 30 mmol/L (22-30); Chloride 104 mmol/L (98-107); Estimated Glomerular Filt Rate > 60; Glucose 114 mg/dL (65-110); Potassium 3.8 mmol/L (3.4-5.0); Sodium 139 mmol/L (137-145)
== END 2021-08-10 06:42 | disposition home or self-care (01) ==
LOC: ANHLAB 06:45
PROVIDERS: PCP Internal Medicine; Visit Provider Nurse Practitioner
DX: E87.6 Hypokalemia (principal)
CPT/HCPCS: 36415; 80048

== ENCOUNTER 2022-05-18 17:34 | Outpatient (CLI) | payer MEDICARE, SELFPAY ==
--- NOTE | ~2022-05-18 | CT_ITS ---
EXAMINATION: CT abdomen pelvis wo con DATE: 05/18/2022 17:53 INDICATION: Bilateral inguinal pain TECHNIQUE: Computed tomography (CT) of the abdomen and pelvis was performed without intravenous contr ast. The dose-length product (DLP) was 1521.60 mGy-cm. Automated exposure control and iterative recon struction technique were employed. COMPARISON: 08/13/2020, 12/15/2017 FINDINGS: Minimal dependent atelectasis is present in the lung bases. The heart size is normal. Punct ate calcifications in an otherwise normal spleen likely represent healed granulomatous disease. The l iver, pancreas, and gallbladder are normal. A1 0.3 cm soft tissue attenuation nodule of the right adr enal gland is stable since 2018. There is also a stable 1.7 cm low-attenuation nodule of the left adr enal gland. Cysts of the kidneys measure up to 3.5 cm on the right. A retroaortic left renal vein is noted. There is calcified atherosclerosis of the aorta and many of the other arteries. No pathologica lly enlarged abdominal or pelvic lymph nodes are identified. The appendix is normal. There is severe lumbar spondylosis with postsurgical change. There is atrophy of the lower paraspinal muscles. IMPRESSION: 1. No CT correlate for the patient's symptoms. Reviewed, dictated and finalized at location F. RRAL SPECIALIST
== END 2022-05-18 17:35 | disposition home or self-care (01) ==
PROVIDERS: PCP Internal Medicine; Visit Provider Nurse Practitioner
DX: R10.2 Pelvic and perineal pain (principal); R10.31 Right lower quadrant pain; R10.32 Left lower quadrant pain
CPT/HCPCS: 74176

== ENCOUNTER 2022-06-15 09:31 | Outpatient (CLI) | payer MEDICARE, SELFPAY ==
--- NOTE | ~2022-06-15 | XR_ITS ---
AP and lateral views of the right hip Clinical history: Pain Findings: No acute fracture or dislocation is seen. Osseous alignment is anatomic. Right hip joint sp cuate is preserved. Mild degenerative spurring noted at the right hip joint. Soft tissues are unremarka ble. Impression: Minimal degenerative change of the right hip joint. Reviewed, dictated and finalized at location . D MARKETER Impression: Minimal degenerative change of the right hip joint.
--- NOTE | ~2022-06-15 | XR_ITS ---
AP and lateral views of the left hip Clinical history: Pain Findings: No acute fracture or dislocation is seen. Osseous alignment is anatomic. Left hip joint spa ce is preserved. Soft tissues are unremarkable. Impression: No significant abnormality is seen. Reviewed, dictated and finalized at location . ER BABYSITTER Impression: No significant abnormality is seen.
== END 2022-06-15 09:32 | disposition home or self-care (01) ==
PROVIDERS: PCP Internal Medicine; Visit Provider Nurse Practitioner Family
DX: M25.551 Pain in right hip (principal); M25.552 Pain in left hip
CPT/HCPCS: 73502

== ENCOUNTER 2022-06-26 07:34 | Outpatient (CLI) | payer MEDICARE, SELFPAY ==
--- NOTE | ~2022-06-26 | MR_ITS ---
EXAMINATION: MR lumbar spine wo con DATE: 06/26/2022 08:46 INDICATION: Other low back pain. TECHNIQUE: Magnetic resonance imaging (MRI) of the lumbar spine was performed without intravenous con trast. COMPARISON: Lumbar spine MRI 10/30/2017 FINDINGS: There is 20 degrees levoscoliosis of thoracolumbar spine. There is 4 mm retrolisthesis of T 12 on L1 and 3 mm retrolisthesis of L1 on L2. There is mild chronic anterior wedging of T12 and L1 ve rtebral bodies. There are changes of anterior fusion procedures at L4-L5 and L5-S1 with interbody dev ices. There are changes of posterior fusion procedure at L5-S1 with pedicle screws. There is a fixati on device between the spinous processes of L1 and L2. There is interbody fusion at L2-L3 and L3-L4. T here is severely decreased disc height at T12-L1 and L1-L2 with endplate remodeling. The distal spina l cord signal intensity is normal. The conus medullaris is at T12-L1. The following disc levels are s pecifically discussed: T12-L1: The disc is bulging and has an annular fissure. There is severe bilateral facet joint osteoar thritis. There is severe right and moderate left neural foraminal stenosis. There is mild central can al stenosis. L1-L2: The disc is bulging and has an annular fissure. There is severe bilateral facet joint osteoart hritis. There is moderate right and mild left neural foraminal stenosis. There is mild central canal stenosis. L2-L3: There is ankylosis of the facet joints with mild hypertrophy. There is moderate right and mild left neural foraminal stenosis. There is mild central canal stenosis. L3-L4: There is mild bilateral facet joint hypertrophy. There is mild bilateral neural foraminal sten osis. There is no central canal stenosis. There is posterior decompression. L4-L5: The facet joints and neural foramina are obscured by metal artifact. There is no central canal stenosis. L5-S1: The facet joints and neural foramina are obscured by metal artifact. There is no central canal stenosis. IMPRESSION: 1. Severe lumbar spondylosis, stable from 10/30/2017. 2. Anterior fusion from L2 to S1. 3. Posterior fusion procedure at L5-S1. Fixation of the spinous processes at L1-L2. 4. Thoracolumbar levoscoliosis. Reviewed, dictated and finalized at location A. RACTIVE DIGITAL MEDIA SPECIALIST IMPRESSION: 1. Severe lumbar spondylosis, stable from 10/30/2017. 2. Anterior fusion from L2 to S1. 3. Posterior fusion procedure at L5-S1. Fixation of the spinous processes at L1 -L2. 4. Thoracolumbar levoscoliosis.
== END 2022-06-26 07:35 | disposition home or self-care (01) ==
PROVIDERS: PCP Internal Medicine; Visit Provider Nurse Practitioner Family
DX: M47.896 Other spondylosis, lumbar region (principal); Z98.1 Arthrodesis status
CPT/HCPCS: 72148

== ENCOUNTER 2022-07-01 08:00 | Outpatient (RCR) | payer MEDICARE, SELFPAY ==
--- NOTE | 2022-05-25 07:50 | PCPTNOTE ---
Patient called & cancelled scheduled appointment this date due to wanting to try pain management first.
--- NOTE | 2022-06-02 09:49 | PTOPEVAL1 ---
Assessment and note entered by Arnaldo Ambriz, PT, DPT Evaluation Information Assessment Status Evaluation Diagnosis Low back pain Onset chronic Subjective Information Pt states about 5-6 weeks ago he woke up and was not able to get OOB d/t the pain, and when he finally did get out of bed he was unable to walk. He states this has subsided some since. He states when he goes to the bathroom his pelvis and his groin hurt, this is the worst pain he has currently. Reports state severe spinal spondylosis. Pt states he can stand for about 5 mins max, and is unable to walk to the mailbox and back d/t LE fatigue. He also reports poor balance . Pt states he has had 6-8 falls in the last 6 months. Pt states he would like to be able to handle more household tasks so he does not have to rely on his family. Reported Pain Level Pain Score 0: Self Report Assessment PT Clinical Summary Hilaroi presents to therapy today for his initial evaluation with a diagnosis of lumbar spondylosis. Today he demonstrates decreased hip and knee ROM, both limited by pain. He demonstrates good knee strength, but very poor ankle strength, and poor hip strength which is also limited by pain. He demonstrates a decreased gait speed with a forward flexed posture, decreased foot clearance, and increased reliance on his walker. Skilled physical therapy services are indicated to address the deficits noted above, to minimize fall risk, and to improve functional mobility. Plan of Care Interventions Electrical Stimulation,Gait Training,Hot Pack/Cold Pack,Manual Therapy,Neuro Re-education,Patient/ Caregiver Educati,Therapeutic Activities, Therapeutic Exercise PT Services Indicated Yes Treatment Frequency and 2x/wk for 4 wks Duration These treatments will address the objective and functional deficits as defined above. The patient will be advanced safely and appropriately in order for the patient to progress towards his/her prior level of function. Additional exercises will be introduced and as well as a comprehensive home exercise program upon discharge, if needed, ?to ensure carryover of functional gains achieved in the clinic. This treatment plan has been reviewed and agreement upon by the patient.
--- NOTE | 2022-06-15 10:02 | PCPTNOTE ---
Patient reports he has another appointment this date and needed to cancel.
--- NOTE | 2022-06-22 09:16 | PCPTNOTE ---
Patient called to cancel due to car not starting.
--- NOTE | 2022-07-01 08:58 | PTOPDC ---
Assessment and note entered by Arnaldo Ambriz, PT, DPT Evaluation Information Assessment Status Progress Diagnosis Low back pain Onset chronic Subjective Information Pt states things are going pretty good. He states mornings are tough but once he gets moving a little bit he can move around better. He states he is still having anterior groin pain but that it is tolerable for now. Pt reports more good days than bad days, and his bad days have decreased in intensity. Pt reports 70% improvement in overall symptoms. Reported Pain Level Pain Score 0,2: Self Report Assessment PT Clinical Summary Hilario presents to therapy today for his progress report following 7 visits of skilled therapy to treat his low back and hip pain. Today he reports subjective improvements in his pain. Objectively he has improved his 5xSTS time and distance covered on the 2 min walk test, but both of these tests still place him at an increased risk for falls. He scored a 26/56 on the Alonso balance assessment. Due to these deficits it was recommended to the patient that he continue with in person therapy. Pt elected to continue with his HEP on his own d/t having multiple doctors appointments a week and therapy was becoming too much to schedule. He will therefore be discharged at this time. Plan of Care Interventions Electrical Stimulation,Gait Training,Hot Pack/Cold Pack,Manual Therapy,Neuro Re-education,Patient/ Caregiver Educati,Therapeutic Activities, Therapeutic Exercise PT Services Indicated Yes Treatment Frequency and to be discharged Duration
== END 2022-07-01 15:05 | disposition home or self-care (01) ==
LOC: ANHGOSHPT 08:00
PROVIDERS: PCP Internal Medicine; Visit Provider Nurse Practitioner
DX: M47.816 Spondylosis without myelopathy or radiculopathy, lumbar region (principal)
CPT/HCPCS: 97110; 97112; 97140; 97161; 97530

== ENCOUNTER 2022-08-11 09:14 | Outpatient (CLI) | payer MEDICARE, SELFPAY ==
[2022-08-11 20:02] LABS: Alanine Aminotransferase 25 U/L (6-50); Albumin Level 4.1 g/dL (3.5-5.1); Alkaline Phosphatase 108 U/L (38-126); Anion Gap 8 mmol/L (8-16); Aspartate Amino Transferase 25 U/L (17-59); Bilirubin,Total 0.5 mg/dL (0.2-1.3); Blood Urea Nitrogen 16 mg/dL (9-20); Calcium 9.3 mg/dL (8.4-10.2); Carbon Dioxide 27 mmol/L (22-30); Chloride 105 mmol/L (98-107); Estimated Glomerular Filt Rate > 60; Glucose 84 mg/dL (65-110); Potassium 4.1 mmol/L (3.4-5.0); Sodium 140 mmol/L (137-145)
[2022-08-11 20:42] LABS: Hemoglobin A1C 5.2 % (<5.7)
[2022-08-11 20:51] LABS: Basophils Absolute Auto 0.1 K/mm3 (0.0-0.1); Basophils Percent Auto 0.7 % (0.2-1.2); Eosinophils Absolute Auto 0.2 K/mm3 (0-0.3); Eosinophils Percent Auto 1.9 % (0-4.4); Hematocrit 39.5 % (42.0-52.0); Hemoglobin 12.9 g/dL (14.0-18.0); Immature Granulocyte Absolute 0.02 K/mm3 (0.00-0.031); Immature Granulocyte Percent A 0.2 % (0-0.5); Lymphocytes Absolute Auto 1.14 K/mm3 (0.9-3.2); Lymphocytes Percent Auto 13.9 % (18.3-44.2); Mean Corpuscular HGB Conc 32.7 g/dl (32-36); Mean Corpuscular Volume 82.6 fl (80-100); Mean Platelet Volume 9.5 fl (7.4-10.4); Monocytes Absolute Auto 0.6 K/mm3 (0.1-0.6); Monocytes Percent Auto 7.5 % (2.6-8.5); Neutrophils Absolute Auto 6.2 K/mm3 (1.3-6.7); Neutrophils Percent Auto 75.8 % (45.5-73.1); Platelet Count Result 267 k/mm3 (150-375); Red Blood Count 4.78 M/mm3 (4.6-6.20); White Blood Count 8.2 K/mm3 (4.5-10.0)
== END 2022-08-11 09:15 | disposition home or self-care (01) ==
LOC: ANHGOSHLAB 09:16
PROVIDERS: PCP Internal Medicine; Visit Provider Nurse Practitioner
DX: R73.9 Hyperglycemia, unspecified (principal); I10 Essential (primary) hypertension
CPT/HCPCS: 36415; 80053; 83036; 85025

== ENCOUNTER 2023-01-10 16:02 | Outpatient (CLI) | payer MEDICARE, SELFPAY ==
[2023-01-10 20:18] LABS: Anion Gap 4 mmol/L (8-16); Blood Urea Nitrogen 19 mg/dL (9-20); Calcium 9.2 mg/dL (8.4-10.2); Carbon Dioxide 31 mmol/L (22-30); Chloride 102 mmol/L (98-107); Estimated Glomerular Filt Rate > 60; Glucose 93 mg/dL (65-110); Potassium 4.2 mmol/L (3.4-5.0); Sodium 137 mmol/L (137-145)
== END 2023-01-10 16:03 | disposition home or self-care (01) ==
LOC: ANHGOSHLAB 16:03
PROVIDERS: PCP Internal Medicine; Visit Provider Internal Medicine
DX: R60.9 Edema, unspecified (principal); E87.6 Hypokalemia; I10 Essential (primary) hypertension
CPT/HCPCS: 36415; 80048

== ENCOUNTER 2023-02-13 12:31 | Outpatient (CLI) | payer MEDICARE, SELFPAY ==
[2023-02-13 19:57] LABS: Appearance Urine Clear (Clear); Bilirubin Urine Negative (Negative); Blood Urine Negative (Negative); Color Urine Yellow (Yellow); Glucose Urine UA Negative (Negative); Ketones Urine Negative (Negative); Leukocyte Esterase Ur Negative LEU/UL (NEGATIVE); Nitrate Urine Negative (Negative); Protein Urine Negative (Negative); Specific Grav Ur 1.017 (1.001-1.035); pH Urine 7.5 (5.0-9.0)
[2023-02-13 19:59] LABS: Add Urine Microscopic? NO
== END 2023-02-13 12:32 | disposition home or self-care (01) ==
LOC: ANHGOSHLAB 12:34
PROVIDERS: PCP Internal Medicine; Visit Provider Internal Medicine
DX: R60.0 Localized edema (principal)
CPT/HCPCS: 81003

== ENCOUNTER 2023-02-20 07:56 | Outpatient (CLI) | payer MEDICARE, SELFPAY ==
[2023-02-20 18:43] LABS: Anion Gap 6 mmol/L (8-16); Blood Urea Nitrogen 15 mg/dL (9-20); Calcium 8.8 mg/dL (8.4-10.2); Carbon Dioxide 30 mmol/L (22-30); Chloride 104 mmol/L (98-107); Estimated Glomerular Filt Rate > 60; Glucose 101 mg/dL (65-110); Potassium 3.9 mmol/L (3.4-5.0); Sodium 140 mmol/L (137-145)
== END 2023-02-20 07:57 | disposition home or self-care (01) ==
PROVIDERS: PCP Internal Medicine; Visit Provider Internal Medicine
DX: R60.0 Localized edema (principal)
CPT/HCPCS: 36415; 80048

== ENCOUNTER 2023-05-16 08:05 | Outpatient (CLI) | payer MEDICARE, SELFPAY ==
[2023-05-16 11:47] LABS: Basophils Absolute Auto 0.1 K/mm3 (0.0-0.1); Basophils Percent Auto 0.9 % (0.2-1.2); Eosinophils Absolute Auto 0.1 K/mm3 (0-0.3); Eosinophils Percent Auto 1.9 % (0-4.4); Hematocrit 41.9 % (42.0-52.0); Hemoglobin 13.3 g/dL (14.0-18.0); Immature Granulocyte Absolute 0.02 K/mm3 (0.00-0.031); Immature Granulocyte Percent A 0.3 % (0-0.5); Lymphocytes Absolute Auto 1.18 K/mm3 (0.9-3.2); Lymphocytes Percent Auto 20.1 % (18.3-44.2); Mean Corpuscular HGB Conc 31.7 g/dl (32-36); Mean Corpuscular Hemoglobin 27.3 pg (26-34); Mean Platelet Volume 9.4 fl (7.4-10.4); Monocytes Absolute Auto 0.4 K/mm3 (0.1-0.6); Monocytes Percent Auto 6.5 % (2.6-8.5); Neutrophils Absolute Auto 4.1 K/mm3 (1.3-6.7); Neutrophils Percent Auto 70.3 % (45.5-73.1); Platelet Count Result 215 k/mm3 (150-375); Red Blood Count 4.87 M/mm3 (4.6-6.20); Red Cell Distribution Width 14.1 % (11.5-14.5); White Blood Count 5.9 K/mm3 (4.5-10.0)
[2023-05-16 12:00] LABS: Anion Gap 8 mmol/L (8-16); Blood Urea Nitrogen 13 mg/dL (9-20); Calcium 9.6 mg/dL (8.4-10.2); Carbon Dioxide 27 mmol/L (22-30); Chloride 104 mmol/L (98-107); Estimated Glomerular Filt Rate > 60; Glucose 92 mg/dL (65-110); Potassium 3.9 mmol/L (3.4-5.0); Sodium 139 mmol/L (137-145)
== END 2023-05-16 08:06 | disposition home or self-care (01) ==
PROVIDERS: PCP Internal Medicine; Visit Provider Internal Medicine
DX: D64.9 Anemia, unspecified (principal); I10 Essential (primary) hypertension; R60.0 Localized edema; Z79.899 Other long term (current) drug therapy
CPT/HCPCS: 36415; 80048; 85025

== ENCOUNTER 2024-08-14 13:40 | Outpatient (CLI) | payer MEDICARE, SELFPAY ==
--- NOTE | ~2024-08-14 | CT_ITS ---
CT of the Abdomen and Pelvis: Indication: Hematuria Technique: 2.5 mm axial scans were obtained through the abdomen and pelvis prior to and following in travenous administration of 130 cc of Omnipaque 350. Dose reduction technique was used on this scan b y utilizing automated exposure control and iterative reconstruction technique. The dose-length produc t (DLP) was 3176.35 mGy-cm. COMPARISON: 05/18/2022 Findings: Scans through the lung bases are unremarkable. The liver, spleen, pancreas, and gallbladder are within normal limits. Stable bilateral adrenal nodul es. Bilateral renal cysts are present. No renal stone or suspicious renal mass evident. No hydronephr osis. There are atherosclerotic calcifications of the aorta. No lymphadenopathy. No bowel obstruction or bowel wall thickening. There is no evidence to suggest acute appendicitis. Images through the pelvis were performed. Urinary bladder unremarkable. No pelvic mass evident. No as cites. 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 Impression: No etiology for hematuria identified. Stable bilateral adrenal nodules, most compatible with adenomas given stability. Reviewed, dictated and finalized at [facility]. Impression: No etiology for hematuria identified. Stable bilateral adrenal nodules, most compatible with adenomas given stability .
[2024-08-14 14:03] LABS: Estimated Glomerular Filt Rate > 60
--- OUTSIDE RECORDS SUMMARY | 2024-08-14 15:15 | XMS_ITS | Encounter Summary ---
Author Organization [facility] Address [address] [place] [address] Care Team Providers Care Design Assistant Name Role Phone RalphstarlaJuan Alberto DO Primary Care Provider [phone]- [phone] Encounter Details Date Type Department Care Team (Late st Contact Info) Description 07/24/2019 Lab Requisition [facility] [address] [place] [address] Santiago Wolf MD [address] [place] [address] Social History Tobacco Use Types Packs/Day Years Used Date Smoking Tobacco: Never Smokeless Tobacco: Never Alcohol Use Standard Drinks/Week Comments No 0 (1 standard drink = 0.6 oz pur e alcohol) Sex and Gender Information Value Date Recorded Sex Assigned at Not on file Gender Identity Not on file Sexual Orientation Not on file documented as of this encounter Plan of Treatment Not on file documented as of this encounter Procedures Procedure Name Priority Date/Time Associated Diagnosis Comments DERMATOPATHOLOGY Routine 07/23/2019 12:0 0 AM VARNISHER PLASTICOATER documented in this encounter Results * DERMATOPATHOLOGY (07/23/2019 12:00 AM VARNISHER PLASTICOATER) Case Report Dermatopathology Report Case: [id number] Authorizing Provider: Santiago Wolf MD Collected: 07/23/2019 12:00 AM Ordering Location: [facility] Received: 07/24/2019 11:54 AM Pathologist: Lauren Rios MD Specimen: Skin, right lat neck base 0 4:34 PM [facility] Final Diagnosis Specimen A. SKIN, right lat neck base: EPIDERMOID CYST (L72.0) 0 4:34 PM [facility] Clinical History R/O BCC. 0 4:34 PM [facility] Gross Description Specimen A: Received is one formalin filled container labeled with the patient's name and designated right lat neck base. The specimen consists of a shave biopsy (3 pieces) measuring [id number], 0q1p0ks, & 6h0j0hx. Jar 0. 0 4:34 PM [facility] Microscopic Description Specimen A. SKIN, right lat neck base: Within the dermis, there is a space lined by epithelium that resembles normal epidermis and the infundibular portion of the hair follicle. 0 4:34 PM [facility] Disclaimer An external and internal positive and negative controls are appropriate for the histochemical, immunohistochemical and immunofluorescence stain(s) in this case (if any), except where stated explicitly. The performance characteristics of the stain(s) cited in this report were developed and its performance characteristic determined by the Dermatopathology Laboratory at [facility], directed by Dr. Vivian Rios. These tests need not be, and therefore are not, approved by the [place] Food and Drug Administration. The tests are used for clinical purposes. Billing Codes Specimen Charges Stain Charges 19303 1 0 4:34 PM [facility]LASTICO[facility]MATOPATH[facility]Y LAB[facility]ORY Embedded Images 0 4:34 PM [facility] Pathology/Cytolog y TISSUE SPECIMEN FROM SKIN / Unknown 07/23/2019 07/24/2019 11:54 AM VARNISHER PLASTICOATER Santiago Wolf MD LAB - PATHOLOGY/[facility]TO [facility] DERMATOPATHOLOGY LABORATORY [facility] - Department of Dermatology [address] [place] [address], 5th Floor Lab [address] [phone] documented in this encounter Visit Diagnoses Not on filedocumented in this encounter Care Teams Design Assistant Relationship Specialty Start Date End Date Juan Alberto Nicolas DO PCP - General 11/02/17 documented as of this encounter
--- OUTSIDE RECORDS SUMMARY | 2024-08-14 15:15 | XMS_ITS | Clinical Summary ---
Author Organization [facility] Address [address] [place] [address] Care Team Providers Care Diesel Engine Mechanic Apprentice Name Role Phone Juan Alberto Nicolas DO Primary Care Provider [phone]- [phone] Social History Tobacco Use Types Packs/Day Years Used Date Smoking Tobacco: Never Assessed Sex and Gender Information Value Date Recorded Sex Assigned at Not on file Legal Sex Male 4:10 PM CDT Gender Identity Not on file Sexual Orientation Not on file Plan of Treatment Health Maintenance Due Date Last Done Comments Annual Medicare Wellness Visit 2005 RSV Immunization or 60+ Years (1 - 1-dose 75+ series) 08/26/2015 Pneumococcal Vaccine: 65+ Years (2 of 2 - PCV) 11/22/2018 11/22/2017 COVID-19 Vaccine ( season) 2024 04/15/2022, 07/30/2021, 12/18/2020, Additional history exists Influenza Adult (#1) 2024 02/11/2020, 03/29/20 19 DTaP, Tdap and Td Vaccines (2 - Td or Tdap) 08/04/2031 08/03/2021 Zoster Vaccines Completed 05/25/2018, 11/22/2017 Meningococcal B Vaccine Aged Out No l onger eligible based on patient's age to complete this topic Meningococcal Vaccine Aged Out No kishore terri eligible based on patient's age to complete this topic RSV Immunizations Under 20 Months Aged Out No longer eligible based on patient's age to complete this topic Insurance MEDICARE [facility] Care Teams Diesel Engine Mechanic Apprentice Relationship Specialty Start Date End Date Juan Alberto Nicolas DO [facility] [facility] [address] [place] [address] PCP - General INTERNAL MEDICINE 02/21/23
--- OUTSIDE RECORDS SUMMARY | 2024-08-14 15:15 | XMS_ITS | Encounter Summary ---
Author Organization [facility] ? Address 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
--- OUTSIDE RECORDS SUMMARY | 2024-08-14 15:15 | XMS_ITS | Encounter Summary ---
Author Organization [facility] Address [address] [place] [address] Care Team Providers Care Sparker And Patcher Name Role Phone Juan Alberto Nicolas DO Primary Care Provider [phone]- [phone] Encounter Details Date Type Department Care Team (Late st Contact Info) Description 11/18/[address] 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
--- OUTSIDE RECORDS SUMMARY | 2024-08-14 15:15 | XMS_ITS | Encounter Summary ---
Author Organization [facility] Address [address] [place] [address] Care Team Providers Care Grief Counselor Name Role Phone Unavailable Primary Care Provider Unavailabl e Encounter Details Date Type Department Care Team (Late st Contact Info) Description 05/15/2006 Outpatient Historical [facility] DEPT Jag Chase MD [address] [facility] [place] [id number] Follow-Up Examination, Following Other Surgery (Primary Dx) Social History Tobacco Use Types Packs/Day Years Used Date Smoking Tobacco: Never Assessed Sex and Gender Information Value Date Recorded Sex Assigned at Not on file Legal Sex Male 5:10 AM EMBOSSING PRESS OPERATOR Gender Identity Not on file Sexual Orientation Not on file documented as of this encounter Plan of Treatment Not on file documented as of this encounter Procedures Procedure Name Priority Date/Time Associated Diagnosis Comments POC CREATININE Routine 05/15/2006 2:25 PM EMBOSSING PRESS OPERATOR documented in this encounter Results * POC CREATININE (05/15/2006 2:25 PM EMBOSSING PRESS OPERATOR) CREATININE POC 0.8 0.6 - 1.3 mg/dL INTERFACE SYSTEM 05/15/2006 2:25 PM EMBOSSING PRESS OPERATOR us Jag Chase MD POINT OF CARE TESTING Final R esult INTERFACE SYSTEM Refer to clinic/hospital department documented in this encounter Visit Diagnoses Diagnosis Follow-up examination, following other surgery- Primary documented in this encounter
--- OUTSIDE RECORDS SUMMARY | 2024-08-14 15:15 | XMS_ITS | Referral Summary ---
Author Organization [facility] Address [address] [place] [address] Care Team Providers Care Chief Legal Officer Name Role Phone Juan Alberto Nicolas DO Primary Care Provider [phone]- [phone] Allergies Active Allergy Reactions Criticality Noted Date Comments Naproxen Hives,Urticaria High 06/23/2015 Reaction: Unknown, , Hives Solifenacin Unknown 11/23/2021 Dry mouth per the pt Medications amLODIPine (NORVASC) 5 mg tablet take 1 tablet by oral route every day 0 0 4 Active doxazosin (CARDURA) 8 mg tablet take 1 tablet by oral route every day 0 0 4 Active vitamins A,C,J-gact-nyofy r (PRESERVISION AREDS) [id number] rfks-sc-ecec capsule 0 0 5 Active losartan (COZAAR) 100 mg tablet take 1 tablet by oral route every day 0 0 5 Active hydroCHLOROthiaz annmarie (HYDRODIURIL) 25 mg tablet take 0.5 Tablet by oral route every day 0 0 5 Active Lactobacillus acidophilus (PROBIOTIC) 10 billion cell capsule take 1 by Oral route once 0 0 5 Active triamcinolone (KENALOG) 0.025 % cream 1 application 2 (two) times a day. Active nystatin cream 1 application 2 (two) times a day. Active emollient combination no.32 emulsion, extended release Apply 1 application topically 2 (two) times a day. Active diclofenac DR (VOLTAREN) 50 mg EC tablet Take 50 mg by mouth as needed Active hydrOXYzine (ATARAX) 50 mg tablet Take 50 mg by mouth nightly Active diclofenac (CATAFLAM) 50 mg tablet Take 50 mg by mouth 2 (two) times a day as needed for pain 2 Active prednisoLONE acetate (PRED FORTE) 1 % ophthalmic suspension 2 Active furosemide (LASIX) 20 mg tablet Take 20 mg by mouth as needed (for leg swelling) Active finasteride (PROSCAR) 5 mg tablet Take 5 mg by mouth daily Active Active Problems Problem Noted Date Diagnosed Date Thoracic ascending aortic aneurysm 07/29/2015 Overview (09/03/2016): Ascending aortic aneurysm Complete tear of rotator cuff 02/24/2010 Social History Tobacco Use Types Packs/Day Years Used Date Smoking Tobacco: Former Cigarettes Q uit: 1968 Smokeless Tobacco: Never Alcohol Use Standard Drinks/Week Comments No 0 (1 standard drink = 0.6 oz pur e alcohol) AUDIT-C Answer Date Recorded Frequency of Alcohol Consumption Not on file 11/23/2021 Q2: How many drinks containi ng alcohol do you have on a typical day when you are drinking? Patient does not drink 2 Frequency of Binge Drinking Not on file 10/28 Personal Safety Answer Date Recorded Getting School Help Needed Not on file 07/19 Sex and Gender Information Value Date Recorded Sex Assigned at Not on file Legal Sex Male 9:37 AM INFECTION CONTROL NURSE Gender Identity Not on file Sexual Orientation Not on file Last Filed Vital Signs Vital Sign Reading Time Taken Comments Blood Pressure 168/95 11/23/2021 11:33 AM CDT RU E Pulse 67 11/23/2021 11:29 AM CDT Temperature 36 C (96.8 F) 06/17/2015 10:33 AM INFECTION CONTROL NURSE Respiratory Rate 18 11/23/2021 11:29 AM CDT Oxygen Saturation 100% 06/17/2015 10:33 AM INFECTION CONTROL NURSE Inhaled Oxygen Concentration - - Weight 125.6 kg (277 lb) 11/23/2021 11:29 AM CDT Height 177.8 cm (5' 10 ) 11/23/2021 11:29 AM CDT Body Mass Index 39.75 11/23/2021 11:29 AM CDT Plan of Treatment Not on file Insurance MEDICARE [facility] MEDICARE [facility] MEDICARE [facility] Care Teams Chief Legal Officer Relationship Specialty Start Date End Date Juan Alberto Nicolas DO PCP - General 10/29/14
--- OUTSIDE RECORDS SUMMARY | 2024-08-14 15:15 | XMS_ITS | Clinical Summary ---
Author Organization [facility] Address [address] [place] [address] Care Team Providers Care Carpenter Ship Name Role Phone Juan Alberto Nicolas DO Primary Care Provider [phone] Allergies Active Allergy Reactions Criticality Noted Date Comments Naproxen Hives,Urticaria High 06/23/2015 Reaction: Unknown, , Hives Solifenacin Unknown 11/23/2021 Dry mouth per the pt Medications amLODIPine (NORVASC) 5 mg tablet take 1 tablet by oral route every day 0 0 4 Active doxazosin (CARDURA) 8 mg tablet take 1 tablet by oral route every day 0 0 4 Active vitamins A,C,E-cqnr-ixafp r (PRESERVISION AREDS) [id number] aquo-sa-ohil capsule 0 0 5 Active losartan (COZAAR) [...] aneurysm Complete tear of rotator cuff 02/24/2010 Surgical History Surgery Date Site/Laterality Comments BACK SURGERY back surgery--multiple CARPAL TUNNEL RELEASE carpal tunnel NOSE SURGERY nose surgery OTHER SURGICAL HISTORY bilater eye laser OTHER SURGICAL HISTORY right catarct KNEE SURGERY right knee surgery BACK SURGERY back surgery EYE SURGERY 01/19/2018 Left Medical History Medical History Date Comments Sleep apnea Sleep apnea Hx Other Medical varicose veins; Comments: [facility] 03/05/2014 - Arthritis Arthritis; Comme nts: [facility] 03/05/2014 - Osteoarthritis Osteoarthritis; Comments: [facility] 11/19/2014 - Hx Other Medical back surgery x5 ; Comments: [facility] 11/19/2014 - Hx Other Medical cataract extrac tion; Comments: [facility] 11/19/2014 - Hx Other Medical right carpal tu nnel release; Comments: [facility] 11/19/2014 - Hx Other Medical obesity; Commen ts: [facility] 11/19/2014 - Hx Other Medical ascending aorti c aneurysm; Comments: [facility] 07/29/2015 - Hypertension Retinal detachment left eye BPH (benign prostatic hyperplasia) Family History Medical History Relation Name Comments Cancer Father Alzheimer's disease Mother Alzheime r's disease; Hypertension Mother Hypertension; Relation Name Status Comments Father Mother (Age 77) Social History Tobacco Use Types Packs/Day Years [...] you are drinking? 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 Gender Identity Not on file Sexual Orientation Not on file Obstetrics History Last Filed Vital Signs Vital Sign Reading Time Taken Comments Blood Pressure 168/95 11/23/2021 11:33 AM CDT RU E Pulse 67 11/23/2021 11:29 AM CDT Temperature 36 C (96.8 F) 06/17/2015 10:33 AM INCOME AUDITOR Respiratory Rate 18 11/23/2021 11:29 AM CDT Oxygen Saturation 100% 06/17/2015 10:33 AM INCOME AUDITOR Inhaled Oxygen Concentration - - Weight 125.6 kg (277 lb) 11/23/2021 11:29 AM CDT Height 177.8 cm (5' 10 ) 11/23/2021 11:29 AM CDT Body Mass Index 39.75 11/23/2021 11:29 AM CDT Plan of Treatment Health Maintenance Due Date Last Done Comments Depression Screening 1940 Fall Risk Assessment 1940 DTaP/Tdap/Td Vaccine (1 - Tdap) 08/26/1951 Hepatitis B Screening 1958 Well Visit 65+ 2005 Pneumococcal vaccine 65+ (2 of 2 - PCV) 11/22/2018 0 11/22/2017 Influenza Vaccine (#1) 2024 03/29/2019 Zoster Vaccine Completed 05/25/2018, 11/22/2017 Insurance MEDICARE [facility] MEDICARE [facility] MEDICARE [facility] [place] Care Teams Carpenter Ship Relationship Specialty Start Date End Date Juan Alberto Nicolas DO PCP - General 10/29/14
--- OUTSIDE RECORDS SUMMARY | 2024-08-14 15:15 | XMS_ITS | Clinical Summary ---
Author Organization [facility] Address [address] [place] [address] Care Team Providers Care Yarn Examiner Name Role Phone Juan Alberto Nicolas DO Primary Care Provider [phone] Source Comments [facility],non-owned Affiliates and Associated Physician Practices is amultiple site organization consisting of ambulatory clinics and hospital sitesin [place], [place], [place] and [place]. This disclosure is being madepursuant to the Care Everywhere program and may not contain all information available regarding this patient. Last updated 18.[facility] Allergies Active Allergy Reactions Criticality Noted Date Comments Naproxen Urticaria Medium 12/12/2017 Medications * Be aware that medications may not be up to date on this document. Alwaysverify current medications with the patient. Medication Sig Dispensed Refills Start Date End Date Status hydroCHLOROthiazide (HYDRODIURIL) 25 MG tablet Take 25 mg by mouth once daily Active AMLODIPINE BESYLATE PO Take 5 mg by mouth once daily Active losartan (COZAAR) 100 MG tablet Take 100 mg by mouth once daily Active cycloSPORINE (RESTASIS) 0.05 % ophthalmic suspension 2 times daily Active ibuprofen (MOTRIN) 600 MG tablet Take 600 mg by mouth every 6 hours as needed Active triamcinolone 0.025 % cream - camphor 0.25% - menthol 0.25% CREA Apply to affected area 2 times daily as needed Active nystatin (MYCOSTATIN) [id number] UNIT/GM cream Apply to affected area 2 times daily Active EpiCeram Apply to affected area 2 times daily Active aspirin (ASPIRIN) 325 MG tablet Take 325 mg by mouth once daily Active omeprazole (PRILOSEC) 20 MG capsule Take 20 mg by mouth daily before breakfast Active guaiFENesin ER 12hr (MUCINEX) 600 MG tablet Take 600 mg by mouth every 12 hours Active doxazosin (CARDURA) 8 MG tablet Take 8 mg by mouth at bedtime Active Active Problems No known active problems Social History Tobacco Use Types Packs/Day Years Used Date Smoking Tobacco: Never Smokeless Tobacco: Never Tobacco Cessation:Counseling Given: No Alcohol Use Standard Drinks/Week Comments No 0 (1 standard drink = 0.6 oz pur e alcohol) Sex and Gender Information Value Date Recorded Sex Assigned at Not on file Gender Identity Not on file Sexual Orientation Not on file Last Filed Vital Signs Vital Sign Reading Time Taken Comments Blood Pressure 127/72 12/12/2017 11:41 AM CDT Pulse 67 12/12/2017 11:41 AM CDT Temperature - - Respiratory Rate - - Oxygen Saturation - - Inhaled Oxygen Concentration - - Weight 104.3 kg (230 lb) 12/12/2017 11:41 AM CDT Height 177.8 cm (5' 10 ) 12/12/2017 11:41 AM CDT Body Mass Index 33 12/12/2017 11:41 AM CDT Plan of Treatment Health Maintenance Due Date Last Done Comments MEDICARE AWV 12 MONTHS 1940 DTAP/TDAP/TD VACCINES (1 - Tdap) 08/26/1959 PNEUMOCOCCAL VACCINE 50+ (1 of 1 - PCV) 1990 ZOSTER VACCINE (1 of 2) 1990 Respiratory Syncytial Virus (RSV) Vaccine Pt: or over 60 yrs (1 - 1-dose 75+ series) 08/26/2015 COVID-19 VACCINE ( - 2023-2 5 season) 2024 INFLUENZA VACCINE (#1) 2024 DEPRESSION SCREENING 05/29/2024 HEPATITIS B VACCINE Aged Out No longe r eligible based on patient's age to complete this topic HIB VACCINE Aged Out No longer eligi ble based on patient's age to complete this topic HPV VACCINE Aged Out No longer eligi ble based on patient's age to complete this topic MENINGOCOCCAL (Group B) VACC INE SHARED DECISION-MAKING Aged Out No longer eligibl e based on patient's age to complete this topic MENINGOCOCCAL GROUPS A/C/Y/W VACCINE Aged Out No longer eligible b ased on patient's age to complete this topic Care Teams Yarn Examiner Relationship Specialty Start Date End Date Juan Alberto Nicolas DO PCP - General 11/02/17
--- OUTSIDE RECORDS SUMMARY | 2024-08-14 15:15 | XMS_ITS | Clinical Summary ---
Author Organization [facility] Address [address] [place] [address] Phone Care Team Providers Care Zinc Plating Machine Operator Name Role Phone Unavailable Primary Care Provider Unavailabl e Allergies Active Allergy Reactions Criticality Noted Date Comments Naproxen Hives High 05/10/2019 Medications doxazosin (CARDURA) 8 mg tablet Take 8 mg by mouth daily at bedtime. Active diclofenac sodium (VOLTAREN) 50 mg Tablet, Delayed Release (E.C.) Take 50 mg by mouth 1 time daily as needed. Active amLODIPine (NORVASC) 5 mg tablet Take 5 mg by mouth daily. Active losartan (COZAAR) 100 mg tablet Take 100 mg by mouth daily. Active hydroCHLOROthia zide (HYDRODIURIL) 12.5 mg tablet Take 12.5 mg by mouth daily. Active hydrOXYzine HCl (ATARAX) 50 mg tablet Take 50 mg by mouth 3 times daily as needed for Itching. Active zinc oxide-hydrocort isone-ketoconaz ole Apply to affected area. Active Lactobac no.41/Bifidobac t no.7 (PROBIOTIC-10 ORAL) Take by mouth. Active aspirin (JOSE) 325 mg tablet Take 325 mg by mouth daily. Active Social History Tobacco Use Types Packs/Day Years Used Date Smoking Tobacco: Former Cigarettes Q uit: 05/29/1967 Smokeless Tobacco: Never Sex and Gender Information Value Date Recorded Sex Assigned at Not on file Legal Sex Male 5:10 AM SHOE SINGER Gender Identity Not on file Sexual Orientation Not on file Last Filed Vital Signs Vital Sign Reading Time Taken Comments Blood Pressure 127/62 05/27/2019 1:51 PM SHOE SINGER Pulse 55 05/27/2019 1:51 PM SHOE SINGER Temperature 36.4 C (97.6 F) 05/27/2019 1:51 PM SHOE SINGER Respiratory Rate 10 05/27/2019 1:51 PM SHOE SINGER Oxygen Saturation 99% 05/27/2019 1:51 PM SHOE SINGER Inhaled Oxygen Concentration - - Weight 112 kg (247 lb) 05/27/2019 7:53 AM SHOE SINGER Height 177.8 cm (5' 10 ) 05/27/2019 7:53 AM SHOE SINGER Body Mass Index 35.44 05/27/2019 7:53 AM SHOE SINGER Plan of Treatment Health Maintenance Due Date Last Done Comments DTAP/TDAP/TD VACCINES (1 - Tdap) 08/26/1959 PNEUMOCOCCAL VACCINE 50+ YEARS (1 of 1 - PCV) 08/25/18 91 ZOSTER VACCINE (1 of 2) 1990 RSV VACCINE (60+ or ) (1 - 1-dose 75+ series) 08/26/2015 INFLUENZA VACCINE (#1) 2023 Insurance MEDICARE PART A AND B [facility] [employer] ACCESS CHOICE
--- OUTSIDE RECORDS SUMMARY | 2024-08-14 15:16 | XMS_ITS | Data Portability ---
Author Organization [place] [facility], Main Office Address [address] [place] [address] Care Team Providers Care Foundation Relations Director Name Role Phone NOLA SERNA Primary Care Provider [phone] NOLA SERNA Referring Provider Assessment Encounter Date Assessment Date Assessment LastModified by Organization Details LastModified Time 08/31/2022 08/31/2022 HPI: Patient returns. He is here for pain in left knee. We have not seen him for his knee since 2019. At that time he had moderate medial compartment osteoarthritis. He does take diclofenac 50 mg but only on an as-needed basis. His knee has become much more symptomatic and painful for him. Physical exam: 82-year-old male alert. He walks with walker. He states he has problem with balance and so he uses a walker to help with that. He is 5 ft 6 287 lb his BMI is 46.3. Has a moderate effusion left knee. Range of motion is from 12-125 degrees. He has dcju-ok-hvdqcuyp tenderness over the medial joint line palpation no lateral joint line tenderness. he has nzvg-zo-xbshfkkp edema in both lower extremities with chronic venous stasis skin changes in both lower extremities. After ChloraPrep was used on the skin 20 mg Kenalog and 3 cc of 0.5% ropivacaine was injected into the left knee. Impression: 82-year-old male who has severe medial compartment osteoarthritis of left knee. He is morbidly obese and not a surgical candidate. I discussed with him that he would need to have his BMI under 40 before surgical option could be discussed. He would need to be under 240 lb. He can repeat cortisone injections often as every 3 months he would like to make an appointment to come back in 3 months repeat injection we will set this up for him. I did recommend a use the diclofenac on a daily basis as this may help with his symptoms. He is having some issues with his hips and is going to make an appointment to be re-evaluated for that in 2 weeks. Not available 08/31/2022 16:27:30 09/14/2022 09/14/2022 HPI: Patient returns. I saw him couple weeks ago and he had injection in his knee. At that time he was complaining a lot of pain in the groin on both hips. He had difficulty walking. At that time he was taking diclofenac but only 1 50 mg pill a day. I recommended that he increase it to b.i.d.. Since he started taking this b.i.d. he has noticed that the symptoms in the groin have actually gone away. At this point he is minimally symptomatic in the hips. He still has difficulty with walking. He is limited without for care walk before his legs start to bother him. This is from the spinal stenosis that he has in his back. He has had a previous fusion in the back or. This limitation with walking has been chronic. Overall he states that he is feeling very well at this point. Patient had x-rays done of both his hips and pelvis that he brought in today which shows that he has quite a bit hypertrophic changes around the acetabulum of the left hip without joint space narrowing. On the right he has mild joint space narrowing superior lateral aspect without hypertrophic changes of the patient acetabulum. Physical exam 82-year-old male alert. He is walking with a walker. His hips flex to 90 bilaterally. Externally rotate to 20 bilaterally. Internal rotate to 20 bilateral without any discomfort. Impression: 82-year-old male who has mild osteoarthritis of right hip and significant hypertrophic changes the acetabulum was her left hip which is most likely preventing range of motion of that hip. Again overall his symptoms that he was having couple weeks ago completely gone away I think this has to do with him taking diclofenac regularly now twice a day. Recommend he continue with this. He schedule seen back in November for reinjection into the knee. Unfortunately with his limitations with walking this is due to spinal stenosis and he understands that and is where this. He has had a previous back fusion certainly if his symptoms worsen he will need to see his back surgeon again he understands this. Not available 09/14/2022 15:56:18 04/12/2023 04/12/2023 HPI: Patient returns. He is here for cortisone injection left knee. his last shot was in August this year. He has severe medial compartment osteoarthritis in the left knee. He is not needing shots on regular basis. Knee started bothering him about a month ago. He wished to have another injection today. Physical exam: 82-year-old male alert pleasant. He walks with a walker. He has a mild effusion left knee. He has about a 20 degree flexion contracture in the knee and flexes to 120 . He has compression socks on both lower extremities without any edema in either lower extremity. After ChloraPrep was used on skin 20 mg Kenalog and 3 cc of 0.5% ropivacaine was injected into the left knee. Risk infection discussed. Impression: 82-year-old male has severe medial compartment osteoarthritis in the left knee. I reminded him he can he is often as every 3 months. He will call when he feels he needs additional injections. Not available 04/12/2023 11:33:23 Plan of Treatment Reminders Order Date Submit Date Provider Last Modified By Organization Details Last Modified Time Details Appointments None recorded. Lab None recorded. Referral None recorded. Procedures injection/a spiration joint/bursa (PROC) - in office procedure, administere d by provider 2022 023 [email or web address] In-Office Order, Internal Use Only DO Not Attach Compendium DO Not Attach Compendium, Do Not Delete/merge, [id number] 10:25:42 injection/a spiration joint/bursa (PROC) - in office procedure, administere d by provider 2022 023 [email or web address] In-Office Order, Internal Use Only DO Not Attach Compendium DO Not Attach Compendium, Do Not Delete/merge, [id number] 15:28:58 Surgeries None recorded. Imaging XR, knee 2022 023 [email or web address] [facility] [place], [address], [place], [address], 3 17:05:15 Medication Orders Kenalog 10 mg/mL suspension for injection 2022 023 [email or web address] [facility] [address], [address], [place], [address], 3 08:12:05 ropivacaine (PF) 5 mg/mL (0.5 %) injection solution 2022 023 [email or web address] [facility] [address], [address], [place], [address], 3 08:12:05 Kenalog 10 mg/mL suspension for injection [address], [address], [place], [address], 3 16:39:35 ropivacaine (PF) 5 mg/mL (0.5 %) injection solution [address], [address] [facility], [place], [address], 3 16:39:35 Patient TargetsNo targets recorded. Patient InstructionsNo instructions recorded. Reason for Referral None Reported. Results Created Date Observation Date Name Description Value Unit Range Abnormal Flag Note LastModifiedBy Organization Detail LastModifiedTime 09/01/19 XR, knee No observ ation record ed. [facility] [address], [place], [address], 08/31/2022 16:24:44 09/15/19 23 06/15/2022 XR, hip, unila teral No observ ation record ed. [email or web address] Not Available 2022 16:06:29 09/15/19 23 06/26/2022 XR, lumba r spine No observ ation record ed. [email or web address] Not Available 2022 16:06:24 Result Notes None recorded. Problems Name Problem SNOMED Code Status Onset Date Resolution Date Notes Provider Name and Address Organization Details Recorded Time Localized, primary osteoarthr itis of the pelvic region and thigh 307140035 Active Not Available [facility] 3 13:52:31 Knee joint effusion 904322098 Active Not Available [facility] 3 13:52:31 Morbid obesity 721630391 Active Not Available [facility] 3 13:52:31 Osteoarthr itis of knee 334059923 Active Not Available [facility] 3 13:52:31 Current tear of medial cartilage AND/OR meniscus of knee Active Not Available [facility] 3 13:52:31 Current tear of lateral cartilage AND/OR meniscus of knee Active Not Available [facility] 3 13:52:31 Knee pain Active Not Available [facility] 3 13:52:31 Osteoarthr itis 634547301 Active Not Available [facility] 3 13:52:31 Disorder of rotator cuff 604009576 Active Not Available [facility] 3 13:52:31 Pain of left knee joint 5221385408519 07 Active 2022 Karen Pierce RMA null, [place] [facility] [place] [facility] 3 14:50:33 Bilateral hip joint pain 7044473093491 9100 Active 2022 Karen Pierce RMA null, [place] [facility] [place] [facility] 3 14:23:58 Osteoarthr itis of left knee joint 4732595060757 09 Active 2022 Karen Pierce RMA null, [facility] 3 10:24:39 Problem Notes None recorded. Procedures Surgical History None recorded. Imaging Results Imaging Date Name Status [facility]Modified by [facility] Details LastModified Time 08/31/2022 XR, knee completed [facility] [place] [address], [place], [address], 08/31/2022 16:24:44 06/15/2022 XR, hip, unilateral completed Information not available 09/14/2022 16:06:29 06/26/2022 XR, lumbar spine completed Information not available 09/14/2022 16:06:24 Procedure Notes None recorded. Medical Equipment None Reported. Medications Name Sig Start Date Stop Date Status Note LastModified by Organization Details LastModified Time cyclobenzap rine 10 mg tablet 06/27 completed Not Available Not Available Not Available ibuprofen 800 mg tablet 06/27 completed Not Available Not Available Not Available ranitidine 300 mg tablet 06/27 completed Not Available Not Available Not Available clarithromy essence 500 mg tablet 06/27 completed Not Available Not Available Not Available tolterodine ER 4 mg capsule,ext ended release 24 hr 06/27 completed Not Available Not Available Not Available hydrocodone 5 mg-acetamin ophen 325 mg tablet TAKE 1 TABLET BY MOUTH TWICE DAILY NEEDED FOR PAIN active Not Available Not Available No t Available potassium chloride ER 10 mEq tablet,exte nded release TAKE 1 TABLET BY MOUTH IN THE MORNING active Not Available Not Available No t Available hydroxyzine HCl 50 mg tablet TAKE 1 TABLET BY MOUTH TWICE DAILY active Not Available Not Available No t Available amlodipine 5 mg tablet active Not Available Not Available Not Available hydrocodone 10 mg-acetamin ophen 325 mg tablet TAKE 1 TABLET BY MOUTH ONCE DAILY NEEDED FOR PAIN 04/12 completed Not Available Not Available Not Available tramadol 50 mg tablet 06/27 completed Not Available Not Available Not Available oxycodone-a cetaminophe n 5 mg-325 mg tablet 06/27 completed Not Available Not Available Not Available alprazolam 0.25 mg tablet TAKE 1 TAB ORALLY 1 HOUR BEFORE MRI AND 1 TAB A 1/2 HOUR BEFORE MRI active Not Available Not Available No t Available doxazosin 8 mg tablet TAKE 1 TABLET BY MOUTH AT BEDTIME active Not Available Not Available No t Available prednisolon e acetate 1 % eye drops,suspe nsion INSTILL 1 DROP INTO LEFT EYE ONCE DAILY active Not Available Not Available No t Available triamcinolo ne acetonide 0.025 % topical cream 06/27 completed Not Available Not Available Not Available aspirin 325 mg tablet,daryl yed release 06/27 completed Not Available Not Available Not Available ciprofloxac in 0.3 % eye drops 06/27 completed Not Available Not Available Not Available Kenalog 10 mg/mL suspension for injection in office 2022 active [facility]: [phone] Not Available Not Available Not Available hydrocodone 7.5 mg-acetamin ophen 325 mg tablet 06/27 completed Not Available Not Available Not Available cephalexin 500 mg capsule 06/27 completed Not Available Not Available Not Available nystatin 100,000 unit/gram topical cream active Not Available Not Available Not Available minocycline 50 mg capsule 06/27 completed Not Available Not Available Not Available diclofenac potassium 50 mg tablet TAKE 1 TABLET BY MOUTH TWICE DAILY NEEDED FOR PAIN active Not Available Not Available No t Available omeprazole 20 mg capsule,del ayed release 06/27 completed Not Available Not Available Not Available hydrochloro thiazide 25 mg tablet TAKE 1 TABLET BY MOUTH ONCE DAILY 04/12 completed Not Available Not Available Not Available diclofenac sodium 50 mg tablet,daryl yed release 04/12 completed Not Available Not Available Not Available furosemide 20 mg tablet TAKE 2 TABLETS BY MOUTH ONCE DAILY IN THE MORNING NEEDED FOR EDEMA OR DIRECTED active Not Available Not Available No t Available clobetasol 0.05 % topical ointment 06/27 completed Not Available Not Available Not Available lorazepam 1 mg tablet 06/27 completed Not Available Not Available Not Available diazepam 10 mg tablet 07/01 completed Not Available Not Available Not Available ibuprofen 600 mg tablet 06/27 completed Not Available Not Available Not Available polyethylen e glycol 3350 17 gram/dose oral powder 06/27 completed Not Available Not Available Not Available ketoconazol e 2 % topical cream 06/27 completed Not Available Not Available Not Available oxybutynin chloride 5 mg tablet 06/27 completed Not Available Not Available Not Available losartan 100 mg tablet TAKE 1 TABLET BY MOUTH IN THE MORNING active Not Available Not Available No t Available amoxicillin 875 mg-potassiu m clavulanate 125 mg tablet 06/27 completed Not Available Not Available Not Available dorzolamide 2 % eye drops 06/27 completed Not Available Not Available Not Available tobramycin 0.3 %-dexametha sone 0.1 % eye drops,suspe nsion active Not Available Not Available Not Available Restasis 0.05 % eye drops in a dropperette 06/27 completed Not Available Not Available Not Available Vigamox 0.5 % eye drops 06/27 completed Not Available Not Available Not Available Nevanac 0.1 % eye drops,suspe nsion 06/27 completed Not Available Not Available Not Available Zostavax (PF) 19,400 unit/0.65 mL subcutaneou s suspension 06/27 completed Not Available Not Available Not Available hydrochloro thiazide 12.5 mg tablet 04/12 completed Not Available Not Available Not Available Combigan 0.2 %-0.5 % eye drops 06/27 completed Not Available Not Available Not Available Durezol 0.05 % eye drops 06/27 completed Not Available Not Available Not Available ropivacaine (PF) 5 mg/mL (0.5 %) injection solution in office 2022 active Not Available Not Available Not Avai lable Myrbetriq 25 mg tablet,exte nded release 06/27 completed Not Available Not Available Not Available EpiCeram topical emulsion, extended release GASTON BID TO ITCHY GROIN SKIN 06/27 completed Not Available Not Available Not Available Ilevro 0.3 % eye drops,suspe nsion 06/27 completed Not Available Not Available Not Available Shingrix (PF) 50 mcg/0.5 mL intramuscul ar suspension, kit 06/27 completed Not Available Not Available Not Available Vitals Date Recorded Body height Body mass index (BMI) Body weight Provider Name and Address Organization Details Last Updated DateTime 08/31/2022 167.64 cm 46.3 kg/m2 879806.01 g Karen Pierce [facility] 08/31/2022 14:54:45 Date Recorded Body height Provider Name an d Address Organization Details Last Updated DateTime 09/14/2022 167.64 cm Karenalo Pierce [facility] [facility] 09/14/2022 14:23:25 Date Recorded Body height Provider Name an d Address Organization Details Last Updated DateTime 04/12/2023 167.64 cm Karenalo Pierce [facility] [facility] 04/12/2023 10:23:44 Social History None recorded. Functional Status None recorded. Mental Status None recorded. Family History Relationship Description Onset Age of this Age Resolved Age Notes LastModified by Organization Details LastModified Time Father Family history of malignant neoplasm [email or web address] Not available 2022 14:49:16 Father Diabetes mellitus [email or web address] Not available 2022 14:49:55 Mother Hypertensive disorder [email or web address] Not available 2022 14:49:32 Medical History No medical history recorded. Past Encounters Encounter ID Performer Location Encounter Start Date Encounter Closed Date Diagnosis/Indication Diagnosis SNOMED-CT Code Diagnosis ICD10 Code Diagnosis Note [id number] CARLOS Spears [facility] [address] [place] [address] 08/31/2022 14:25:38 08/31/2022 17:05:15 Pain of left knee joint 3053498382 55154 M25.562 [id number] CARLOS Spears [facility] [address] [place] [address] 09/14/2022 14:20:50 09/14/2022 16:03:50 Bilateral hip joint pain 7024786490 4564109 M25.551 M25.915 [id number] CARLOS Spears [facility] [address] [place] [address] 04/12/2023 10:16:51 04/12/2023 11:43:07 Osteoarthritis of left knee joint 1267951064 91240 M17.12 Health Concerns Section Related Observation LastModified by Organization Detai ls LastModified Time None Recorded Concern Status LastModified by Organization Details LastModified Time None Recorded Advance Directives Directive None Recorded Payers Encounter Date Sequence Insurance Name Policy Number Policy Mcdonald Covered Member ID Mcdonald Member ID Guarantor Name 08/31/2022 1 [place] Hilario K Primas [id number] Hilario K Primas 08/31/2022 2 [place] [id number] Hilario K Primas [id number] Hilario K Primas 09/14/2022 1 [place] Hilario K Primas [id number] 65 Hilario K Primas 09/14/2022 2 [place] [id number] Hilario K Primas [id number] Hilario K Primas 04/12/2023 1 [place] Hilario Jazmin Primas [id number] 65 Hilario K Primhaylie 04/12/2023 2 [place] [id number] Hilario Chilel [id number] Hilario Chilel
== END 2024-08-14 13:41 | disposition home or self-care (01) ==
PROVIDERS: PCP Internal Medicine; Visit Provider Urology
DX: R31.0 Gross hematuria (principal); D35.00 Benign neoplasm of unspecified adrenal gland
CPT/HCPCS: 74178; Q9967

== ENCOUNTER 2024-08-19 08:19 | Outpatient (CLI) | payer MEDICARE, SELFPAY ==
--- OUTSIDE RECORDS SUMMARY | 2024-08-19 08:40 | XMS_ITS | Clinical Summary ---
Author Organization [facility] Address [address] [place] [address] Care Team Providers Care Nursing Coordinator Name Role Phone Juan Alberto Nicolas DO Primary Care Provider [phone] Social History Tobacco Use Types Packs/Day Years [...] age to complete this topic Insurance MEDICARE [facility] Care Teams Nursing Coordinator Relationship Specialty Start Date End Date Juan Alberto Nicolas DO [facility] [address] [place] [address] PCP - General INTERNAL MEDICINE 02/21/23
--- OUTSIDE RECORDS SUMMARY | 2024-08-19 08:40 | XMS_ITS | Clinical Summary ---
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 Gender Identity Not on file Sexual Orientation Not on file Last Filed Vital Signs Vital Sign Reading Time Taken Comments Blood Pressure 127/62 05/27/2019 1:51 PM OUTDOOR POWER EQUIPMENT MECHANIC Pulse 55 05/27/2019 1:51 PM OUTDOOR POWER EQUIPMENT MECHANIC Temperature 36.4 C (97.6 F) 05/27/2019 1:51 PM OUTDOOR POWER EQUIPMENT MECHANIC Respiratory Rate 10 05/27/2019 1:51 PM OUTDOOR POWER EQUIPMENT MECHANIC Oxygen Saturation 99% 05/27/2019 1:51 PM OUTDOOR POWER EQUIPMENT MECHANIC Inhaled Oxygen Concentration - - Weight 112 kg (247 lb) 05/27/2019 7:53 AM OUTDOOR POWER EQUIPMENT MECHANIC Height 177.8 cm (5' 10 ) 05/27/2019 7:53 AM OUTDOOR POWER EQUIPMENT MECHANIC Body Mass Index 35.44 05/27/2019 7:53 AM OUTDOOR POWER EQUIPMENT MECHANIC Plan of Treatment Health Maintenance Due Date Last Done Comments DTAP/TDAP/TD VACCINES (1 - Tdap) 08/26/1959 PNEUMOCOCCAL VACCINE 50+ YEARS (1 of 1 - PCV) 08/25/18 91 ZOSTER VACCINE (1 of 2) 1990 RSV VACCINE (60+ or ) (1 - 1-dose 75+ series) 08/26/2015 INFLUENZA VACCINE (#1) 2023 Insurance MEDICARE PART A AND B [facility] 4 the stars ACCESS CHOICE
--- OUTSIDE RECORDS SUMMARY | 2024-08-19 08:40 | XMS_ITS | Encounter Summary ---
Author Organization [employer] Address 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 Gender Identity Not on file Sexual Orientation Not on file documented as of this encounter Plan of Treatment Not on file documented as of this encounter Procedures Procedure Name Priority Date/Time Associated Diagnosis Comments POC CREATININE Routine 05/15/2006 2:25 PM MAGISTRATE ASSISTANT documented in this encounter Results * POC CREATININE (05/15/2006 2:25 PM MAGISTRATE ASSISTANT) CREATININE POC 0.8 0.6 - 1.3 mg/dL INTERFACE SYSTEM 05/15/2006 2:25 PM MAGISTRATE ASSISTANT us Jag Chase MD POINT OF CARE TESTING Final R esult INTERFACE SYSTEM Refer to clinic/hospital department documented in this encounter Visit Diagnoses Diagnosis Follow-up examination, following other surgery- Primary documented in this encounter
--- OUTSIDE RECORDS SUMMARY | 2024-08-19 08:40 | XMS_ITS | Data Portability ---
Author Organization [place] [facility] [employer], Main Office Address [address] [place] [address] Care Team Providers Care Client Server Developer Name Role Phone NOLA SERNA Primary Care Provider NOLA SERNA Referring Provider Assessment Encounter Date [...] motion is from 12-125 degrees. He has kdpu-vr-gonlmdmq tenderness over the medial joint line palpation no lateral joint line tenderness. he has zrlt-tt-syxeeygy edema in both lower extremities with chronic [...] procedure, administere d by provider 2022 023 [id number] In-Office Order, Internal Use Only DO Not Attach Compendium DO Not Attach Compendium, Do Not Delete/merge, 14670 3 10:25:42 injection/a spiration joint/bursa (PROC) - in office procedure, administere d by provider 2022 023 [id number] In-Office Order, Internal Use Only DO Not Attach Compendium DO Not Attach Compendium, Do Not Delete/merge, [id number] 3 15:28:58 Surgeries None recorded. Imaging XR, knee 2022 023 [email or web address] [facility] [place], [address], [place], [address], 3 17:05:15 Medication Orders Kenalog 10 mg/mL suspension for injection 2022 023 [email or web address] [facility] [address], [address], [place], [address], 3 08:12:05 ropivacaine (PF) 5 mg/mL (0.5 %) injection solution 2022 023 [email or web address] [facility] [address], [address], [place], [address], 3 08:12:05 Kenalog 10 mg/mL suspension for injection [address], [address], [place], [address], 3 16:39:35 ropivacaine (PF) 5 mg/mL (0.5 %) injection solution [address] 2425, [address] [facility], [place], [address], 3 16:39:35 Patient TargetsNo targets recorded. Patient InstructionsNo instructions recorded. Reason for Referral None Reported. Results Created Date Observation Date Name Description Value Unit Range Abnormal Flag Note LastModifiedBy Organization Detail LastModifiedTime 09/01/19 XR, knee No observ ation record ed. [facility] [address] [facility] [address], [place], [address], 08/31/2022 16:24:44 09/15/19 23 06/15/2022 XR, hip, [...] itis of the pelvic region and thigh 865582648 Active Not Available [facility] 3 13:52:31 Knee joint effusion 957042475 Active Not Available [facility] 3 13:52:31 Morbid obesity 858397145 Active Not Available [facility] 3 13:52:31 Osteoarthr itis of knee 521769440 Active Not Available [facility] 3 13:52:31 Current tear of medial cartilage AND/OR meniscus of knee Active Not Available [facility] 3 13:52:31 Current tear of lateral cartilage AND/OR meniscus of knee Active Not Available [facility] 3 13:52:31 Knee pain Active Not Available [facility] 3 13:52:31 Osteoarthr itis 023396969 Active Not Available [facility] 3 13:52:31 Disorder of rotator cuff 816002299 Active Not Available [facility] 3 13:52:31 Pain of left knee joint 6115710873277 07 Active 2022 Karen Pierce RMA null, [place] [facility] 3 14:50:33 Bilateral hip joint pain 3102155205190 9100 Active 2022 Karen Pierce RMA null, [place] [facility] 3 14:23:58 Osteoarthr itis of left knee joint 8993517859732 09 Active 2022 Karen Pierce RMA null, [facility] 3 10:24:39 Problem Notes None recorded. Procedures Surgical History None recorded. Imaging Results Imaging Date Name Status LastModified by [facility] Details LastModified Time 08/31/2022 XR, knee completed [facility] [place] [address], [place], [address], 08/31/2022 16:24:44 06/15/2022 XR, hip, unilateral completed [...] suspension for injection in office 2022 active [facility]: 0003- 0494- 20 Not Available Not Available [...] Updated DateTime 08/31/2022 167.64 cm 46.3 kg/m2 210560.01 g Karen Pierce [facility] [employer] [facility] 08/31/2022 14:54:45 Date Recorded Body height Provider Name an d Address Organization Details Last Updated DateTime 09/14/2022 167.64 cm Karenalo Pierce [facility] [employer] [facility] 09/14/2022 14:23:25 Date Recorded Body height Provider Name an d Address Organization Details Last Updated DateTime 04/12/2023 167.64 cm Karenalo Pierce [facility] [employer] [facility] 04/12/2023 10:23:44 Social History None recorded. Functional Status None recorded. Mental Status None recorded. Family History Relationship Description Onset Age of this Age Resolved Age Notes LastModified by Organization Details LastModified Time Father Family history of malignant neoplasm [email or web address] Not available 2022 14:49:16 Father Diabetes mellitus [email or web address] Not available 2022 14:49:55 Mother Hypertensive disorder [email or web address] Not available 2022 14:49:32 Medical History No medical history recorded. Past Encounters Encounter ID Performer Location Encounter Start Date Encounter Closed Date Diagnosis/Indication Diagnosis SNOMED-CT Code Diagnosis ICD10 Code Diagnosis Note [id number] CARLOS Spears [facility] [address] [place] [address] 08/31/2022 14:25:38 08/31/2022 17:05:15 Pain of left knee joint 2111869397 17022 M25.562 [id number] CARLOS Spears [facility] [address] [place] [address] 09/14/2022 14:20:50 09/14/2022 16:03:50 Bilateral hip joint pain 0009527103 5316333 M25.551 M25.081 [id number] CARLOS Spears [facility] [address] [place] [address] 04/12/2023 10:16:51 04/12/2023 11:43:07 Osteoarthritis of left knee joint 7138020279 09081 M17.12 Health Concerns Section Related Observation LastModified by Organization Detai ls LastModified Time None Recorded Concern Status LastModified by Organization Details LastModified Time None Recorded Advance Directives Directive None Recorded Payers Encounter Date Sequence Insurance Name Policy Number Policy Mcdonald Covered Member ID Mcdonald Member ID Guarantor Name 08/31/2022 1 [place] Hilario K Primas [id number] Hilario K Primas 08/31/2022 2 [place] [id number] Hilario K Primas [id number] Hilario K Primas 09/14/2022 1 [place] Hilario K Primas [id number] Hilario K Primas 09/14/2022 2 [place] [id number] Hilario K Primas [id number] Hilario K Primas 04/12/2023 1 [place] Hilario Jazmin Primas [id number] Hilario K Primhaylie 04/12/2023 2 [place] [id number] Hilario Chilel [id number] Hilario Chilel
--- OUTSIDE RECORDS SUMMARY | 2024-08-19 08:40 | XMS_ITS | Encounter Summary ---
Author Organization [facility] Address [address] [place] [address] Care Team Providers Care Power House Engineer Name Role Phone RalphstarlaJuan Alberto DO Primary Care Provider [phone] Encounter Details Date Type Department Care Team (Late st Contact Info) Description 07/24/2019 Lab Requisition [facility] DermPath Lab [address] [place] [address] Santiago Wolf MD [address] [place] [address] Social History Tobacco Use Types Packs/Day Years [...] Comments DERMATOPATHOLOGY Routine 07/23/2019 12:0 0 AM AUTO APPRAISER documented in this encounter Results * DERMATOPATHOLOGY (07/23/2019 12:00 AM AUTO APPRAISER) Case Report Dermatopathology Report Case: [id number] Authorizing Provider: Santiago Wolf MD Collected: 07/23/2019 12:00 AM Ordering Location: [facility] DermPath Lab Received: 07/24/2019 11:54 AM Pathologist: Lauren Rios MD Specimen: Skin, right lat neck base 0 4:34 PM [facility] DERMATOPATHOLOGY LABORATORY Final Diagnosis Specimen A. SKIN, right lat neck base: EPIDERMOID CYST (L72.0) 0 4:34 PM [facility] DERMATOPATHOLOGY LABORATORY Clinical History R/O BCC. 0 4:34 PM [facility] DERMATOPATHOLOGY LABORATORY Gross Description Specimen A: Received is one formalin filled container labeled with the patient's name and designated right lat neck base. The specimen consists of a shave biopsy (3 pieces) measuring 7g2a6ws, 9j9s2vp, & 2y5d2ow. Jar 0. 0 4:34 PM [facility] DERMATOPATHOLOGY LABORATORY Microscopic Description Specimen A. SKIN, right lat neck base: Within the dermis, there is a space lined by epithelium that resembles normal epidermis and the infundibular portion of the hair follicle. 0 4:34 PM [facility] DERMATOPATHOLOGY LABORATORY Disclaimer An external and internal positive and negative controls are appropriate for the histochemical, immunohistochemical and immunofluorescence stain(s) in this case (if any), except where stated explicitly. The performance characteristics of the stain(s) cited in this report were developed and its performance characteristic determined by the Dermatopathology Laboratory at [facility], directed by Dr. Vivian Rios. These tests need not be, and therefore are not, approved by the [place] Food and Drug Administration. The tests are used for clinical purposes. Billing Codes Specimen Charges Stain Charges 54250 1 0 4:34 PM [facility] DER[facility]ORATORY Embedded Images 0 4:34 PM [facility] DERMATOPATHOLOGY LABORATORY Pathology/Cytolog y TISSUE SPECIMEN FROM SKIN / Unknown 07/23/2019 07/24/2019 11:54 AM AUTO APPRAISER Santiago Wolf MD LAB - PATHOLOGY/CYTO LOGY ORDERABLES DERMATOPATHOLOGY LABORATORY [facility] - Department of Dermatology [address] [place] [address], 5th Floor Lab [address] [phone] documented in this encounter Visit Diagnoses Not on filedocumented in this encounter Care Teams Power House Engineer Relationship Specialty Start Date End Date Juan Alberto Nicolas DO PCP - General 11/02/17 documented as of this encounter
--- OUTSIDE RECORDS SUMMARY | 2024-08-19 08:40 | XMS_ITS | Encounter Summary ---
Author Organization [employer] Address [address] [place] [address] Care Team Providers Care Assault Amphibious Vehicle Crewman Name Role Phone Unavailable Primary Care Provider Unavailabl e Encounter Details Date Type Department Care Team (Latest Contact Info) Description 06/02/2006 Outpatient Historical [facility], [address] Jag Chase MD [address] [place] [address] Benign Neoplasm of Nasal Cavities, Middle Ear, and Accessory Sinuses (Primary Dx) Social History Tobacco Use Types Packs/Day Years Used Date Smoking Tobacco: Never Assessed Sex and Gender Information Value Date Recorded Sex Assigned at Not on file Legal Sex Male 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
--- OUTSIDE RECORDS SUMMARY | 2024-08-19 08:40 | XMS_ITS | Clinical Summary ---
Author Organization [facility] [employer] Address [address] [place] [address] Care Team Providers Care Water Control Supervisor Name Role Phone Juan Alberto Nicolas DO Primary Care Provider [phone] Source Comments [facility] [employer],non-owned Affiliates and Associated Physician Practices is amultiple site organization consisting of ambulatory clinics and hospital sitesin [place], [place], [place] and [place]. This disclosure is being madepursuant to the Care Everywhere program and may not contain all information available regarding this patient. Last updated 18.[facility] [employer] Allergies Active Allergy Reactions Criticality Noted Date [...] times daily as needed Active nystatin (MYCOSTATIN) 949619 UNIT/GM cream Apply to affected area 2 [...] age to complete this topic Care Teams Water Control Supervisor Relationship Specialty Start Date End Date Juan Alberot Nicolas DO PCP - General 11/02/17
--- OUTSIDE RECORDS SUMMARY | 2024-08-19 08:40 | XMS_ITS | Continuity of Care Document ---
Author Organization [facility] Address [address] [place] [address] Dr [address] [place] [address] Phone Care Team Providers Care Dynamite Reclaimer Name Role Phone Raymond Rain Unavailable Unavailable Procedures Procedure Date Eye Exam & Treatment Ophthalmoscopy, Subsequent Optic Nerve Topography Eye Exam & Treatment No Script Progressive Lens, Plastic Cell[employer]egis Devices - Medical Eye Exam & Treatment Refraction Eye Exam Established Pt Eye Exam Established Pt Ophthalmoscopy, Subsequent Progressive Lens, Plastic [employer] Medical Refraction Office/outpatient Visit, Est Visual Functional Status Assessed Eye Exam & Treatment Ophthalmoscopy, Subsequent Fluorescein Angiography Optic Nerve Topography Visual Field Examination-Professional Ap Vision Svcs Frames Purchases Progressive Lens, Plastic [employer] Medical Visual Field Examination-Technical Refraction Post-op Follow-up Visit After Cataract Laser Surgery Eye Exam Established Pt Post-op Follow-up Visit Ophthalmoscopy, Subsequent Post-op Follow-up Visit Ophthalmoscopy, Subsequent Post-op Follow-up Visit Ophthalmoscopy, Subsequent Eye Exam Established Pt Ophthalmoscopy, Subsequent Advance Directives Directive Yes / No Effective Date File Name No Information Encounters Encounter Description Practice Location Reason(s) For Visit Diagnoses Date Provider Providers Copied on Encounter [facility] [place] [facility], [address] [place] [address] [address], [place], [place], [address], tel:[phone] [facility] No Information 1-200 9 Briseyda Andrade. [address] [place], [address], [place]. tel:[phone] Referring Provider: Raymond Griffin, [address] [place], [address]. tel:[phone] [facility] [place] [facility], [address] [place] [address] [address], [place], [place], [address], [place] tel:[phone] [facility] No Information -200 9 Hubbard OD Braxton. [address], [place], [address], [place]. tel:[phone] [facility] [place] [facility], [address] [place] [address] [address], [place], [place], [address], [place] tel:[phone] [facility] No Information 0 2-200 8 [facility] [employer] . [address] [facility] [address], [facility] [address], [place], [place], [address], [place]. tel:[phone] Referring Provider: Braxton Hubbard OD A, [address], [place], [address]. tel:[phone] g Provider: Siobhan Gore, [address] [place], [address]. tel:[phone] [facility] [place] [facility], [address] [place] [address], [place], [place], [address], [place] tel:[phone] [facility] No Information Jul-2 8-200 8 Hubbard OD Braxton. [address] , [address], [place], [address], [place]. tel:[phone] [facility] [place] [facility], [address] [place] [address], [place], [place], [address], [place] tel:[phone] [facility] No Information Mar-2 0-200 8 Briseyda Andrade. [address] [place], [address], [place]. tel:[phone] [facility] [place] [facility], [address] [place] [address], [place], [place], [address], [place] tel:[phone] [facility] No Information Sep-2 0-200 7 Briseyda Andrade. [address] [place], [address], [place]. tel:[phone] [facility] [place] [facility], [address] [place] [address], [place], [place], [address], [place] tel:[phone] [facility] [address] No Information 7 [employer] [facility] [employer] . [address] [facility] [address], [place], [place], [address], [place]. tel:[phone] Referring Provider: Bra[place] Bass, [facility], [place], [address]. tel:[phone] g Provider: Anay Lu, [address] [place] [address], [address]. tel:[phone] [facility] [place] [facility], [address] [place] [address], [place], [place], [address], [place] tel:[phone] [facility] [address] No Information 7 Stevie Limon. [address] , [address], [place], [address], [place]. tel:[phone] Office/outpat ient Visit, Est [facility] [place] [facility], [address] [place] [address], [place], [place], [address], [place] tel:[phone] [facility] No Information 7 Briseyda Andrade. [address] [place], [address], [place]. tel:[phone] [facility] [place] [facility], [address] [place] [address], [place], [place], [address], [place] tel:[phone] [facility] No Information 7 Briseyda Andrade. [address] [place], [address], [place]. tel:[phone] Referring Provider: Raymond Griffin, [address] [place], [address]. tel:[phone] [facility] [place] [facility], [address] [place] [address] [address], [place], [place], [address], [place] tel:[phone] [facility] No Information 7 Arash Isbell. [facility] [facility] , [address], [place], [address], [place]. tel:[phone] Referring Provider: Sukhi Bass, [address] [place] [address] [address], [place], [address]. tel:[phone] [facility], [address] [place] [address] [address], [place], [place], [address], [place] tel:[phone] [facility] No Information 7 [facility] . [address] [facility] [address], [place], [place], [address], [place]. tel:[phone] Referring Provider: Sukhi Bass, [address] [facility], [place], [address]. tel:[phone] g Provider: Siobhan Gore, [address] [place] [address], [address]. tel:[phone] [facility] [place] [facility], [address] [place] [address], [place], [place], [address], [place] tel:[phone] [facility] No Information Apr-1 6-200 7 rAash Isbell. [address] [facility] , [address], [place], [facility], [place]. tel:[phone] Referring Provider: Sukhi Bass, [address] [facility], [place], [facility]. tel:[phone] [facility] [place] [facility], [address] [place] [address], [place], [place], [address], [place] tel:[phone] [facility] No Information 3-200 7 Arash Isbell. [address] [facility] , [address], [place], [facility], [place]. tel:[phone] [facility] [place] [facility], [address] [place] [address], [place], [place], [address], [place] tel:[phone] [facility] No Information Mar-2 9-200 7 Arash Isbell. [address] [facility] , [address], [place], [facility], [place]. tel:[phone] [facility] [place] [facility], [address] [place] [address], [place], [place], [address], [place] tel:[phone] [facility] No Information Mar-2 1-200 7 Arash Isbell. [address] [facility] , [address], [place], [facility], [place]. tel:[phone] [facility] [place] [facility], [address] [place] [address], [place], [place], [address], [place] tel:[phone] [facility] No Information Mar-1 5-200 7 Briseyda Andrade. [address] [place], [facility], [place]. tel:[phone] [facility] [place] [facility], [address] [place] [address], [place], [place], [address], [place] tel:[phone] [facility] No Information Mar-0 1-200 7 Briseyda Andrade. [address] [place], [address], [place]. tel:[phone] Referring Provider: Raymond Griffin, [address] [place], [place], [facility]. tel:[phone] [facility] [place] [facility], [address] [place] [address], [place], [place], [address], [place] tel:[phone] [facility] No Information 7 Briseyda Andrade. [address] [place], [address], [place]. tel:[phone] [facility], [address] [place] [address], [place], [place], [address], [place] tel:[phone] [facility] No Information 7 Briseyda Andrade. [address] [place], [place], [facility], [place]. tel:[phone] Family History Family Member Type Diagnosis Age At Onset No Information Payers Payer name Insurance type Covered alliance party ID Authoriza tion(s) [place] [id number] [facility] CI [id number] Social History Type Description Quantity Date Captured Comments Sex Male Smoking Status No Information Chief Complaint And Reason For Visit No Information Reason For Referral Reason For Referral No Information History Of Present Illness Encounter Date Complaint History Of Prese nt Illness No Information Functional Status Date Functional Assessmen t No Information Instructions Date Instruction Additional Infor mation No Information Assessments Type Assessment Date No Information Patient Care Teams Name Effective Dates (start - stop) Status Members No Information
--- OUTSIDE RECORDS SUMMARY | 2024-08-19 08:41 | XMS_ITS | Continuity of Care Document ---
Author Organization [employer] Address [address] [place] [address] Phone Care Team Providers Care Observatory Director Name Role Phone Juan Alberto Alarcon MD Unavailable Unavailable Advance Directives Directive Yes / No Effective Date File Name No Information Encounters Encounter Description Practice Location Reason(s) For Visit Diagnoses Date Provider Providers Copied on Encounter [facility], [address], [place], [place], [address], [place] tel:[phone] [facility] No Information Dorian Avendano. [address] , [place], [place], [address], [place]. tel:[phone] Referring Provider: Juan Alberto Gipson, [address], [place], [address]. tel:[phone] Family History Family Member Type Diagnosis Age At Onset No Information Payers Payer name Insurance type Covered republican ID Authoriza tion(s) [place] [id number] BCBS INACTIVE OUT OF STATE [id number] Social History Type Description Quantity Date Captured [...]
[2024-08-19 09:26] LABS: Basophils Absolute Auto 0.1 K/mm3 (0.0-0.1); Basophils Percent Auto 0.9 % (0.2-1.2); Eosinophils Absolute Auto 0.2 K/mm3 (0-0.3); Eosinophils Percent Auto 3.2 % (0-4.4); Hematocrit 43.1 % (42.0-52.0); Hemoglobin 14.2 g/dL (14.0-18.0); Immature Granulocyte Absolute 0.02 K/mm3 (0.00-0.031); Immature Granulocyte Percent A 0.3 % (0-0.5); Lymphocytes Absolute Auto 1.13 K/mm3 (0.9-3.2); Lymphocytes Percent Auto 17.1 % (18.3-44.2); Mean Corpuscular HGB Conc 32.9 g/dl (32-36); Mean Corpuscular Hemoglobin 28.1 pg (26-34); Mean Corpuscular Volume 85.2 fl (80-100); Mean Platelet Volume 9.3 fl (7.4-10.4); Monocytes Absolute Auto 0.4 K/mm3 (0.1-0.6); Monocytes Percent Auto 6.7 % (2.6-8.5); Neutrophils Absolute Auto 4.7 K/mm3 (1.3-6.7); Neutrophils Percent Auto 71.8 % (45.5-73.1); Platelet Count Result 218 k/mm3 (150-375); Red Blood Count 5.06 M/mm3 (4.6-6.20); Red Cell Distribution Width 14.3 % (11.5-14.5); White Blood Count 6.6 K/mm3 (4.5-10.0)
[2024-08-19 09:34] LABS: Alanine Aminotransferase 25 U/L (6-50); Albumin Level 4.5 g/dL (3.5-5.1); Alkaline Phosphatase 113 U/L (38-126); Anion Gap 9 mmol/L (4-12); Aspartate Amino Transferase 29 U/L (17-59); Bilirubin,Total 0.7 mg/dL (0.2-1.3); Blood Urea Nitrogen 20 mg/dL (9-20); Calcium 9.4 mg/dL (8.4-10.2); Carbon Dioxide 27 mmol/L (22-30); Chloride 105 mmol/L (98-107); Estimated Glomerular Filt Rate > 60; Glucose 107 mg/dL (65-110); Potassium 4.1 mmol/L (3.4-5.0); Sodium 141 mmol/L (137-145)
== END 2024-08-19 08:20 | disposition home or self-care (01) ==
LOC: ANHLAB 08:21
PROVIDERS: PCP Internal Medicine; Visit Provider Nurse Practitioner
DX: D64.9 Anemia, unspecified (principal); I10 Essential (primary) hypertension
CPT/HCPCS: 36415; 80053; 85025

== ENCOUNTER 2024-11-24 04:40 | Inpatient (IN) | payer MEDICARE, SELFPAY ==
[2024-11-24] VITALS (8 sets, daily range): BP systolic 87–123; BP diastolic 68–99; PULSE 103–116; RESP 14–27; TEMP 36.6–36.8; O2SAT 97–100; BMI 41.6
--- NOTE | ~2024-11-24 | XR_ITS ---
Portable chest x-ray Comparison: 11/27/2014 Clinical History: Chest pain Findings: Lungs are clear, without focal consolidation or pleural effusion. Cardiomediastinal silho uette is stable. Bones and soft tissues are unremarkable. Impression: Clear lungs. Reviewed, dictated and finalized at location . Impression: Clear lungs.
[2024-11-24 04:59] LABS: Basophils Percent Auto 0.3 % (0.2-1.2); Eosinophils Percent Auto 0.2 % (0-4.4); Hematocrit 38.5 % (42.0-52.0); Hemoglobin 12.4 g/dL (14.0-18.0); Immature Granulocyte Absolute 0.05 K/mm3 (0.00-0.031); Immature Granulocyte Percent A 0.5 % (0-0.5); Lymphocytes Absolute Auto 0.85 K/mm3 (0.9-3.2); Lymphocytes Percent Auto 8.7 % (18.3-44.2); Mean Corpuscular HGB Conc 32.2 g/dl (32-36); Mean Corpuscular Hemoglobin 28.6 pg (26-34); Mean Corpuscular Volume 88.9 fl (80-100); Mean Platelet Volume 9.3 fl (7.4-10.4); Monocytes Absolute Auto 0.7 K/mm3 (0.1-0.6); Monocytes Percent Auto 6.7 % (2.6-8.5); Neutrophils Absolute Auto 8.2 K/mm3 (1.3-6.7); Neutrophils Percent Auto 83.6 % (45.5-73.1); Platelet Count Result 231 k/mm3 (150-375); Red Blood Count 4.33 M/mm3 (4.6-6.20); Red Cell Distribution Width 14.1 % (11.5-14.5); White Blood Count 9.8 K/mm3 (4.5-10.0)
--- NOTE | 2024-11-24 04:59 | ED.CHESTPAIN ---
HPI - Chest Pain General Chief Complaint: Chest Pain Stated Complaint: Stemi Source: patient, family () and EMS Mode of arrival: EMS Limitations: no limitations History of Present Illness HPI narrative: Patient presents with report of shortness of breath. EMS was called to the residence for this symptoms. It is then that he did know to them that he had been experiencing chest pain with exertion, unable to walk 5-10 feet. His symptoms have been going on for 3 days. EMS noted T-wave inversions as well as ST segment elevation in the inferior leads and thus activated STEMI from the field. They note that he had been hemodynamically stable throughout transport although there was 1 blood pressure reading 200s/100s (though obtained on particularly bouncy part of road). Patient had increased work of breathing during movement for this reason supplemental oxygen had been applied although did not desaturate and maintained SpO2 99% throughout. Denies any nausea or vomiting but he does report that he became diaphoretic. Notes that when he moves and tries to even minimally exert himself he experiences chest pressure like an elephant. EMS administered 4 ASA (324mg). Patient is on Lasix but he states this is for swelling in his legs. Denies a history of heart failure diagnosis. Chest pain is 10/10 with movement. He denies any radiating nature to the pain. It is substernal. Denies any cardiac history. Does not see/follow-up feed adviser Cardiac risk factors HTN: Yes HLD: No DM: No Obese: Yes Smoker: No Personal history MO/TIA/CVA: No Fam Hx MO in first degree relative <65yo: No (dad 66yo) Related Data Home Medications ?Medication ?Instructions ?Recorded ?Confirmed ?Last Taken ?Type zinc 50 mg tablet 50 mg PO DAILY 05/07/20 11/24/24 09/15/20 History hydrocortisone 2.5 % topical cream 1 applic topical BID PRN Itching 09/11/20 11/24/24 09/20/20 History vit C 250 mg-vit E 90 mg-zinc 40 1 tablet PO BID 09/11/20 11/24/24 09/15/20 History mg-copper 1 [id number] capsule (PreserVision AREDS-2) finasteride 5 mg tablet 5 mg PO DAILY 04/27/21 11/24/24 Unknown History Lactobacills gasseri-Bifidobac 1 cap PO DAILY 10/20/21 11/24/24 Unknown History bifidum,longum 1.5 billion cell capsule ([employer]) sodium chloride 0.65 % nasal drops 2 drp intranasal .qd PRN nasal 10/20/21 11/24/24 Unknown History ([place] Saline) congestion furosemide 20 mg tablet 20 mg PO DAILY 11/24/24 11/24/24 Unknown History hydrochlorothiazide 12.5 mg capsule 12.5 mg PO DAILY 11/24/24 11/24/24 Unknown History Allergies Allergy/AdvReac Type Severity Reaction Status Date / Time naproxen Allergy Unknown Hives Verified 11/24/24 04:57 solifenacin Allergy Dry Mouth Verified 11/24/24 04:57 [facility], [facility] Past Medical History Medical History Lower leg edema Arthritis Bladder tumor BPH (benign prostatic hyperplasia) Chronic GERD CARMELINA (obstructive sleep apnea) HTN (hypertension) Thoracic aortic aneurysm 4.7 cm in 2018 Carpal tunnel syndrome Surgical History Surgical History History of appendectomy H/O knee surgery 2006 right knee replacement History of carpal tunnel surgery H/O sinus surgery 2006 papiloma removed History of nasal surgery History of back surgery H/O eye surgery Family History Family History Father , 66yo Diabetes mellitus Heart attack Lung cancer Acute myocardial infarction, Onset Age: 66 Mother Family history of Alzheimer's disease Social History Social History Social History: Caffeine-Coffee Smoking packs per day: 1 Smoking cigarettes per day: 20.0 Years smoked: 10 Smoking pack-years: 10.00 Smoking status: Former smoker Alcohol intake: former Alcohol use details: SOCIALLY IN PAST Substance use: never Do You Feel Safe in your Home?: Yes Lack of Transportation: No Lack of Food: Never True Current Housing: I Have Housing Concerned About Future Housing: No Difficulty Paying Gas/Electric Bills: No Difficulty Paying for Meds: No Currently Unemployed: No Education: High School Diploma/GED Difficulty w/ Childcare or Family Care: No Living arrangements: with family Additional living arrangements comments: Gender identity (if verbalized by the patient): Male Spiritual care concerns: No Exam Narrative: GENERAL: well-nourished, and in no acute distress. HEAD: Normocephalic, atraumatic. EYES: Non injected, non icteric ENT: Nares clear, no rhinorrhea or epistaxis. Gross auditory acuity intact. NECK: Supple. No meningismus. CHEST: Speaking in full sentences. No respiratory distress. Lungs clear to auscultation bilaterally though limited due to body habitus HEART: Tachycardic rate and rhythm. . ABDOMEN: Obese but Soft, nondistended. EXTREMITIES: Normal range of motion. Trace bilateral lower extremity edema. SKIN: Warm, dry, no rash. NEURO: No focal deficits. Alert and oriented. Answering questions. Following commands. Normal speech without aphasia or dysarthria. PSYCH: Normal mood and affect. Course Vital Signs Vital signs: Vital Signs Temperature 97.8 F 11/24/24 04:38 Pulse Rate 116 H 11/24/24 04:38 Respiratory Rate 14 11/24/24 04:38 Blood Pressure 123/91 H 11/24/24 04:38 Pulse Oximetry 100 11/24/24 04:38 Oxygen Delivery Room Air 11/24/24 04:38 Temperature 98.2 F 11/24/24 07:29 Pulse Rate 104 H 11/24/24 07:29 Respiratory Rate 18 11/24/24 07:29 Blood Pressure 106/74 11/24/24 07:29 Pulse Oximetry 97 11/24/24 07:29 Oxygen Delivery Room Air 11/24/24 04:49 MDM - Chest Pain MDM Narrative Medical decision making narrative: Patient presents as a STEMI activation from the field by EMS due to ST elevations in inferior leads and diffuse T wave inversions. They had been called out for patient having 3 days of shortness of breath and experiencing chest pain with minimal exertion. In the emergency department he is afebrile with vital signs notable for tachycardia. Diastolic blood pressure elevated. Patient reports chest pain with exertion but no chest pain at present. Discussed with feed adviser Dr. Arora and shared EKG obtained by EMS as well as EKG obtained here. Also compared to EKGs from 2018 in 2019. Patient has EKGs from 2019 in 2020 in the EMR although unable to access them. In the absence of active chest pain at this time, Cardiology believes that he had an infarct subacutely, potentially 2-3 days ago and is now experiencing angina. Plans for urgent but not emergent catheterization. STEMI activation is downgraded at this time. Patient made NPO and will obtain repeat EKG 30 minutes from the initial. Lactic acid (requested by cardiology) is elevated. He has a normocytic anemia. This had previously been present. Repeat EKG at 5:17 a.m. is obtained at this time looks similar but patient is now having symptoms at rest. Given he is symptomatic at rest, will activate STEMI again per Dr Arora and take to rags laborer. He already received 324 mg aspirin by EMS. Heparin bolus and drip ordered. Patient is otherwise been hemodynamically stable. ProBNP elevated though not to a degree to suggest acute heart failure based on the reference range of patient's assay. He does state that he takes Lasix at baseline for lower extremity edema not for diagnosis of heart failure. HEART SCORE History 2 highly suspicious 1 moderately suspicious 0 slightly suspicious History score [address] depression/elevation not due to LBBB, LVH, or digoxin [address] depression but LBBB, LVH, nonspecific repolarization changes 0 normal ECG score 2 Age 2 >/= 65 1 45-64 0 <45 Age score 2 Risk factors (HTN, hypercholesterolemia, DM, obesity with BMI >30, current smoker or cessation </=3mo), positive fam hx with parent or sibling with CVD before age 65, atherosclerotic disease (prior MO, PCI/CABG, CVA/TIA, or peripheral arterial disease) 2 >/= 3 risk factors or history of atherosclerotic dz 1 - 1-2 risk factors 0 no known risk factors Risk factor score 1 Initial Troponin 2 >3 times normal limit 1 1-3 times normal limit 0 less than or equal to normal limit Troponin score 2 (240x upper limit of normal) Total HEART Score 8 == Both troponin and D-dimer resolved after patient has gone to the rags laborer. == Critical Care: 1 or more vital organ systems impaired with a high probability of imminent or life-threatening deterioration in the patient's condition requiring frequent personal assessment and manipulation of the patient's condition. This included time spent evaluating the patient, speaking with EMS pre-hospital personnel and family, reviewing/interpreting laboratory/imaging studies, discussing the case with consultants or admitting teams, retrieving data and reviewing charts, monitoring for decompensation, documenting the visit, and performing bundled procedures exclusive of separately billed procedures. Differential Diagnosis Differential diagnosis: Likely stable angina, unstable angina pectoris, atypical chest pain, st elevation myocardial infarction, chest pain, biliary colic and other (Pneumonia, aneurysm; pulmonary embolism; heart failure) Lab Data 11/24/24 04:53 11/24/24 04:53 Labs: Lab Results 11/24/24 11/24/24 11/24/24 Range/Units 04:51 04:53 06:32 WBC 9.8 (4.5-10.0) K/mm3 RBC 4.33 L (4.6-6.20) M/mm3 Hgb 12.4 L (14.0-18.0) g/dL Hct 38.5 L (42.0-52.0) % MCV 88.9 (80-100) fl MCH 28.6 (26-34) pg MCHC 32.2 (32-36) g/dl RDW 14.1 (11.5-14.5) % Plt Count 231 (150-375) k/mm3 MPV 9.3 (7.4-10.4) fl Immature Gran % (Auto) 0.5 (0-0.5) % Neut % (Auto) 83.6 H (45.5-73.1) % Lymph % (Auto) 8.7 L (18.3-44.2) % [place] % (Auto) 6.7 (2.6-8.5) % Eos % (Auto) 0.2 (0-4.4) % Baso % (Auto) 0.3 (0.2-1.2) % Lymph # (Auto) 0.85 L (0.9-3.2) K/mm3 [place] # (Auto) 0.7 H (0.1-0.6) K/mm3 Eos # (Auto) 0.0 (0-0.3) K/mm3 Baso # (Auto) 0.0 (0.0-0.1) K/mm3 Abs Immat Gran (auto) 0.05 H (0.00-0.031) K/mm3 Absolute Neuts (auto) 8.2 H (1.3-6.7) K/mm3 Absolute Nucleated RBC 0.000 (0.0-0.012) K/mm3 Nucleated RBC % 0.0 (0.0-0.2) % PT 14.8 H (11.1-14.7) Seconds INR 1.2 APTT 42.5 H (22.3-36.8) Seconds Activ Coag Time Kaolin 262 H (74-137) SEC D-Dimer 3.39 H (<0.48) ug/mL Sodium 140 (137-145) mmol/L Potassium 4.0 (3.4-5.0) mmol/L Chloride 109 H (98-107) mmol/L Carbon Dioxide 21 L (22-30) mmol/L Anion Gap 10 (4-12) mmol/L BUN 23 H (9-20) mg/dL Creatinine 0.90 (0.7-1.3) mg/dL Estim Creat Clear Calc 74 ml/min Estimated GFR > 60 (59 - ) Glucose 140 H (65-110) mg/dL Lactic Acid 2.4 H (0.7-2.0) mmol/L Calcium 9.2 (8.4-10.2) mg/dL Total Bilirubin 0.6 (0.2-1.3) mg/dL AST 53 (17-59) U/L ALT 36 (6-50) U/L Alkaline Phosphatase 105 (38-126) U/L Troponin I 8.140 H* (0.000-0.034) ng/mL NT-Pro-B Natriuret Pep 1350 H (19.9-100) pg/mL Total Protein 7.2 (6.3-8.2) g/dL Albumin 4.1 (3.5-5.1) g/dL Lipase 55 (23-300) U/L Imaging Data Attestation: I personally reviewed and interpreted this imaging study as follows: My impression: Cardiomegaly on my independent interpretation of chest xray Radiologist's impression: Impression: Clear lungs. (results after patient in rags laborer) ECG Data EKG #1: Attestation: I personally reviewed and interpreted this ECG as follows: ECG completion date: 11/24/24 ECG completion time: 04:45 Prior ECG tracings: available for review (2018 and 2019 EKGs without the elevations/depressions/inversions seen on today's) Interpretation: Sinus tachycardia at a rate of 111 beats per minute. VT interval 188. QRS 118. QT/QTC 330/395. Good R-wave progression across the precordial leads. ST elevation in 3 and AVF, less appreciated in lead 2. T-wave inversions throughout inferior leads. There are T-wave inversions with ST depressions in lateral precordial leads V5 V6. EKG #2: Attestation: I personally reviewed and interpreted this ECG as follows: ECG completion date: 11/24/24 ECG completion time: 05:17 Prior ECG tracings: available for review Interpretation: Sinus tachycardia at a rate of 110 beats per minute. VT interval 211 consistent with a first-degree AV block. Patient continues to have ST elevations in inferior leads 3 and AVF with depressions in V4 V5 and V6. There are T-wave inversions throughout the inferior leads and in V5 and V6. Good R-wave progression across the precordial leads. Critical Care Time Critical Care Time Critical Care Time: Yes Total Critical Care Time: 45 Discharge Plan Discharge Clinical Impression: ST elevation [place] (STEMI), Elevated brain natriuretic peptide (BNP) level Patient Disposition: Still a Patient Condition: Stable
[2024-11-24 05:13] LABS: Alanine Aminotransferase 36 U/L (6-50); Albumin Level 4.1 g/dL (3.5-5.1); Alkaline Phosphatase 105 U/L (38-126); Anion Gap 10 mmol/L (4-12); Aspartate Amino Transferase 53 U/L (17-59); Bilirubin,Total 0.6 mg/dL (0.2-1.3); Blood Urea Nitrogen 23 mg/dL (9-20); Calcium 9.2 mg/dL (8.4-10.2); Carbon Dioxide 21 mmol/L (22-30); Chloride 109 mmol/L (98-107); Estimated CRCL calculation 74 ml/min; Estimated Glomerular Filt Rate > 60; Glucose 140 mg/dL (65-110); Lipase 55 U/L (23-300); Sodium 140 mmol/L (137-145); Total Protein 7.2 g/dL (6.3-8.2)
--- NOTE | 2024-11-24 05:14 | ECG_ITS ---
Test Date: 2024-11-24 05:17:18 Measurements Intervals [place] Rate: 110 P: 76 ID: [id number] QRS: 3 QRSD: 112 T: -90 QT: 296 QTc: 400 Interpretive Statements SINUS TACHYCARDIA WITH FIRST DEGREE AV BLOCK INTRAVENTRICULAR CONDUCTION DELAY LEFT VENTRICULAR HYPERTROPHY WITH ST-T CHANGE INFERIOR ST ELEVATION MYOCARDIAL INFARCT- SUBACUTE BASELINE ARTIFACT- I, II, III, AVR, AVL, AVF, V4-V6 ABNORMAL ECG Compared to ECG 11/24/2024 04:45:27 First degree AV block now present Electronically Signed On 11-24-2024 08:29:31 CDT by Chapin Chung D.O.
--- NOTE | 2024-11-24 05:15 | ECG_ITS ---
Test Date: 2024-11-24 04:45:27 Measurements Intervals [place] Rate: 111 P: 63 GA: 197 QRS: 3 QRSD: 114 T: -68 QT: 327 QTc: 445 Interpretive Statements SINUS TACHYCARDIA WITH OCCASIONAL ECTOPIC PREMATURE COMPLEXES INTRAVENTRICULAR CONDUCTION DELAY INFERIOR ST ELEVATION MYOCARDIA INFARCT- SUBACUTE RECIPROCAL ST DEPRESSION IN HIGH LATERAL LEADS ABNORMAL ECG No previous ECG available for comparison Electronically Signed On 11-24-2024 08:28:38 CDT by Chapin Chung D.O.
[2024-11-24 05:19] LABS: Lactic Acid Reflex 2.4 mmol/L (0.7-2.0)
[2024-11-24 05:28] LABS: NT Pro B Type Natriuretic Pept 1350 pg/mL (19.9-100)
--- NOTE | 2024-11-24 05:28 | PC.NURSE ---
Pt c/o 10/10 chest pain, non radiating. EKG done at bedside.
[2024-11-24] MEDS: HEPARIN SODIUM 5,000 UNITS/ML VIAL 4000 UNITS IV PUSH (05:35)
--- NOTE | 2024-11-24 05:43 | PM.IMHP ---
H&P: HPI History of Present Illness Date/Time: 11/24/24 05:43 Chief Complaint: Chest pain Narrative: 84-year-old man with history of hypertension and thoracic aneurysm ( 4.7 cm in 2018) in presents with chest pain. He had chest pain for the last 3 days described as substernal pressure and heaviness. Three days ago, it would be intermittent in the special with physical activity and would take some time to resolve with rest. Two days ago, it progressively worsened where he would take much longer time to resolve with rest. Yesterday he has been having the chest pain constantly no as and able to sleep last evening due to the chest pressure the eventually prompted him to present via EMS to the emergency room for further evaluation. He does have some slight associated shortness of breath. Otherwise supine position is mostly limited due to orthopedic back issues. No lower extremity swelling. No bleeding. No known previous cardiac conditions. Review of Systems Cardiovascular: Cardiovascular: Reports as per HPI Respiratory: Respiratory: Reports as per HPI [facility] Past Medical History Medical History (Updated 11/24/24 @ 05:32 by Christiana Bocanegra MD) Lower leg edema Arthritis Bladder tumor BPH (benign prostatic hyperplasia) Chronic GERD CARMELINA (obstructive sleep apnea) HTN (hypertension) Thoracic aortic aneurysm 4.7 cm in 2018 Carpal tunnel syndrome Surgical History Surgical History (Updated 08/21/24 @ 10:01 by Ludmila Gore NP) History of appendectomy H/O knee surgery 2006 right knee replacement History of carpal tunnel surgery H/O sinus surgery 2006 papiloma removed History of nasal surgery History of back surgery H/O eye surgery Family History Family History Father Diabetes mellitus Heart attack Lung cancer Mother Family history of Alzheimer's disease Social History Social History Social History: Caffeine-Coffee Smoking packs per day: 1 Smoking cigarettes per day: 20.0 Years smoked: 10 Smoking pack-years: 10.00 Smoking status: Former smoker Alcohol intake: former Alcohol use details: SOCIALLY IN PAST Substance use: never Lack of Transportation: No Lack of Food: Never True Current Housing: I Have Housing Concerned About Future Housing: No Difficulty Paying Gas/Electric Bills: No Difficulty Paying for Meds: No Currently Unemployed: No Education: High School Diploma/GED Difficulty w/ Childcare or Family Care: No Living arrangements: with family Additional living arrangements comments: Gender identity (if verbalized by the patient): Male Spiritual care concerns: No Meds Home Medications and Allergies Home Medications ?Medication ?Instructions ?Recorded ?Confirmed ?Type zinc 50 mg tablet 50 mg PO DAILY 05/07/20 08/21/24 History chromium 200 mcg-brindal scales 500 1 tablet PO TID 09/11/20 08/21/24 History mg tablet ([employer]) hydrocortisone 2.5 % topical cream 1 applic topical BID PRN Itching 09/11/20 08/21/24 History vit C 250 mg-vit E 90 mg-zinc 40 1 tablet PO BID 09/11/20 08/21/24 History mg-copper 1 gp-[id number]-cqnyci capsule (PreserVision AREDS-2) finasteride 5 mg tablet 5 mg PO DAILY 04/27/21 08/21/24 History Lactobacills gasseri-Bifidobac cap PO .qd 10/20/21 08/21/24 History bifidum,longum 1.5 billion cell capsule ([employer]) sodium chloride 0.65 % nasal drops 2 drp intranasal .qd PRN 10/20/21 08/21/24 History ([place] Saline) diclofenac potassium 50 mg tablet 50 mg PO DAILY PRN pain #180 tabs 02/19/24 08/21/24 Rx hydroxyzine pamoate 50 mg capsule 50 mg PO BID PRN itching #60 caps 04/29/24 08/21/24 Rx furosemide 20 mg tablet See Rx Instructions .Route 08/26/24 Rx .COMPLEX #120 tabs doxazosin 8 mg tablet See Rx Instructions .Route 09/25/24 Rx .COMPLEX #90 tabs losartan 100 mg tablet See Rx Instructions .Route 09/25/24 Rx .COMPLEX #90 tabs potassium chloride 10 mEq 10 meq PO QAM #90 tabs 10/22/24 Rx tablet,extended release Compression stockings #1 ea 10/28/24 Rx clonidine HCl 0.1 mg tablet 0.1 mg PO DAILY PRN hypertensive 11/14/24 Rx emergency #90 tabs Allergies Allergy/AdvReac Type Severity Reaction Status Date / Time naproxen Allergy Unknown Hives Verified 11/24/24 04:57 solifenacin Allergy Dry Mouth Verified 11/24/24 04:57 Vital Signs Vital Signs - 24 hr 11/24/24 04:38 11/24/24 04:49 11/24/24 04:54 Temperature 36.6 C Pulse Rate 116 H 112 H Respiratory Rate 14 Blood Pressure 123/91 H Pulse Oximetry 100 98 Oxygen Delivery Room Air Room Air 11/24/24 04:54 Temperature Pulse Rate 113 H Respiratory Rate 27 H Blood Pressure 123/85 Pulse Oximetry 100 Oxygen Delivery Exam Const: General: uncomfortable HENMT: Mouth: Yes moist mucous membranes Eyes: EOM: EOMs intact bilaterally Neck: Neck: no JVD Resp: Effort & Inspection: normal respiratory effort Auscultation: rales Cardio: Rate: tachycardic Rhythm: regular rhythm Heart sounds: Murmur heart sound present Other: Grade 5 holosystolic murmur in the lower sternal border GI: GI Palp: Yes Soft to palpation Neuro: Speech: normal speech Extrem: General: no pedal edema H&P: Results Labs Labs: Short CBC 11/24/24 Range/Units 04:53 WBC 9.8 (4.5-10.0) K/mm3 Hgb 12.4 L (14.0-18.0) g/dL Hct 38.5 L (42.0-52.0) % Plt Count 231 (150-375) k/mm3 BMP 11/24/24 04:53 Sodium 140 Potassium 4.0 Chloride 109 H Carbon Dioxide 21 L BUN 23 H Creatinine 0.90 Glucose 140 H Calcium 9.2 Cardiac Enzymes 11/24/24 Range/Units 04:53 Troponin I 8.140 H* (0.000-0.034) ng/mL Liver Function 11/24/24 Range/Units 04:53 Total Bilirubin 0.6 (0.2-1.3) mg/dL AST 53 (17-59) U/L ALT 36 (6-50) U/L Alkaline Phosphatase 105 (38-126) U/L Albumin 4.1 (3.5-5.1) g/dL Assessment and Plan Assessment and plan (1) ST elevation [place] (STEMI): Code(s): I21.3 - ST elevation (STEMI) myocardial infarction of unspecified site Status: Acute (2) Thoracic aortic aneurysm: Qualifiers: Presence of rupture: without rupture Qualified Code(s): I71.2 - Thoracic aortic aneurysm, without rupture Code(s): I71.2 - Thoracic aortic aneurysm, without rupture Status: Acute (3) HTN (hypertension): Qualifiers: Hypertension type: essential hypertension Qualified Code(s): I10 - Essential (primary) hypertension Code(s): I10 - Essential (primary) hypertension Status: Acute Plan 84-year-old man with history of hypertension and thoracic aneurysm ( 4.7 cm in 2018) in presents with chest pain whose clinical presentation is consistent with delayed presentation inferior STEMI Inferior ST-elevation [place] - delayed presentation however given his persistent chest discomfort, tachycardia, lower sternal border murmur and overall ill appearing presentation, we will proceed with emergent cardiac catheterization with possible PCI - the risks, benefits, and alternatives have been discussed with the patient who after understanding agreed to proceed with cardiac catheterization with possible PCI - loaded with aspirin by EMS and status post heparin bolus in the ER - obtain transthoracic echocardiogram - baseline lactic 2.4 hypertension thoracic aneurysm
--- NOTE | 2024-11-24 05:51 | P.SEDATION_ITS ---
Moderate Sedation Note-Pt Data Patient Data Allergies Allergy/AdvReac Type Severity Reaction Status Date / Time naproxen Allergy Unknown Hives Verified 11/24/24 04:57 solifenacin Allergy Dry Mouth Verified 11/24/24 04:57 Home Medications ?Medication ?Instructions ?Recorded ?Confirmed ?Type zinc 50 mg tablet 50 mg PO DAILY 05/07/20 08/21/24 History chromium 200 mcg-brindal scales 500 1 tablet PO TID 09/11/20 08/21/24 History mg tablet (Garcinia Cambogia) hydrocortisone 2.5 % topical cream 1 applic topical BID PRN Itching 09/11/20 08/21/24 History vit C 250 mg-vit E 90 mg-zinc 40 1 tablet PO BID 09/11/20 08/21/24 History mg-copper 1 [id number] capsule (PreserVision AREDS-2) finasteride 5 mg tablet 5 mg PO DAILY 04/27/21 08/21/24 History Lactobacills gasseri-Bifidobac cap PO .qd 10/20/21 08/21/24 History bifidum,longum 1.5 billion cell capsule (Leeo) sodium chloride 0.65 % nasal drops 2 drp intranasal .qd PRN 10/20/21 08/21/24 History ([place] Saline) diclofenac potassium 50 mg tablet 50 mg PO DAILY PRN pain #180 tabs 02/19/24 08/21/24 Rx hydroxyzine pamoate 50 mg capsule 50 mg PO BID PRN itching #60 caps 04/29/24 08/21/24 Rx furosemide 20 mg tablet See Rx Instructions .Route 08/26/24 Rx .COMPLEX #120 tabs doxazosin 8 mg tablet See Rx Instructions .Route 09/25/24 Rx .COMPLEX #90 tabs losartan 100 mg tablet See Rx Instructions .Route 09/25/24 Rx .COMPLEX #90 tabs potassium chloride 10 mEq 10 meq PO QAM #90 tabs 10/22/24 Rx tablet,extended release Compression stockings #1 ea 10/28/24 Rx clonidine HCl 0.1 mg tablet 0.1 mg PO DAILY PRN hypertensive 11/14/24 Rx emergency #90 tabs Current Medications: Active Medications Heparin Sodium (Porcine) (Heparin Sodium 5,000 Units/Ml Vial) 4,000 units IV PUSH PRN PRN PRN Reason: aPTT less than 55 seconds Heparin Sodium (Porcine) (Heparin Sodium 5,000 Units/Ml Vial) 4,000 units IV PUSH PRN PRN PRN Reason: aPTT 55 - 70 seconds Heparin Sodium/Dextrose (Heparin Sodium/D5w 100 Units/Ml) 25,000 units in 250 mls @ 10 mls/hr IV CONT .Q24H MAXIMILIANO; Protocol Sedation/Anesthesia: No previous sedation/anesthesia problems (including family history). FOR[facility]LY [facility] Past Medical History Medical History (Updated 11/24/24 @ 05:32 by Christiana Bocanegra MD) Lower leg edema Arthritis Bladder tumor BPH (benign prostatic hyperplasia) Chronic GERD CARMELINA (obstructive sleep apnea) HTN (hypertension) Thoracic aortic aneurysm 4.7 cm in 2018 Carpal tunnel syndrome Surgical History Surgical History (Updated 08/21/24 @ 10:01 by Ludmila Gore NP) History of appendectomy H/O knee surgery 2005 right knee replacement History of carpal tunnel surgery H/O sinus surgery 2006 papiloma removed History of nasal surgery History of back surgery H/O eye surgery Family History Family History Father Diabetes mellitus Heart attack Lung cancer Mother Family history of Alzheimer's disease Social History Social History Social History: Caffeine-Coffee Smoking packs per day: 1 Smoking cigarettes per day: 20.0 Years smoked: 10 Smoking pack-years: 10.00 Smoking status: Former smoker Alcohol intake: former Alcohol use details: SOCIALLY IN PAST Substance use: never Lack of Transportation: No Lack of Food: Never True Current Housing: I Have Housing Concerned About Future Housing: No Difficulty Paying Gas/Electric Bills: No Difficulty Paying for Meds: No Currently Unemployed: No Education: High School Diploma/GED Difficulty w/ Childcare or Family Care: No Living arrangements: with family Additional living arrangements comments: Gender identity (if verbalized by the patient): Male Spiritual care concerns: No Mod Sed Physical Exam Physical Exam Pre Procedural Exam: Variation: Lungs (rales), Heart Rate (tachycardic) and Heart Rhythm Hours since solid foods: 12 Hours since liquid intake: 12 Mallampati Classification: class III Internal Medicine - PN: Obj Da Vital Signs Vital Signs: Vital Signs - 24 hr 11/24/24 04:38 11/24/24 04:49 11/24/24 04:54 Temperature 36.6 C Pulse Rate 116 H 112 H Respiratory Rate 14 Blood Pressure 123/91 H Pulse Oximetry 100 98 Oxygen Delivery Room Air Room Air 11/24/24 04:54 Temperature Pulse Rate 113 H Respiratory Rate 27 H Blood Pressure 123/85 Pulse Oximetry 100 Oxygen Delivery Meds/Results Medications: Active Medications Generic Name Dose Route Start Last Admin Trade Name Freq PRN Reason Stop Dose Admin Heparin Sodium (Porcine) 4,000 units 11/24/24 05:30 Heparin Sodium 5,000 Units/Ml Vial IV PUSH PRN PRN aPTT less than 55 seconds Heparin Sodium (Porcine) 4,000 units 11/24/24 05:30 Heparin Sodium 5,000 Units/Ml Vial IV PUSH PRN PRN aPTT 55 - 70 seconds Heparin Sodium/Dextrose 25,000 units in 250 mls @ 10 mls/hr 11/24/24 05:30 Heparin Sodium/D5w 100 Units/Ml IV CONT .Q24H MAXIMILIANO Protocol 1,000 UNITS/HR Labs 11/24/24 04:53 11/24/24 04:53 Labs: Laboratory Results - last 24 hr 11/24/24 11/24/24 04:51 04:53 WBC 9.8 RBC 4.33 L Hgb 12.4 L Hct 38.5 L MCV 88.9 MCH 28.6 MCHC 32.2 RDW 14.1 Plt Count 231 MPV 9.3 Immature Gran % (Auto) 0.5 Neut % (Auto) 83.6 H Lymph % (Auto) 8.7 L [place] % (Auto) 6.7 Eos % (Auto) 0.2 Baso % (Auto) 0.3 Lymph # (Auto) 0.85 L [place] # (Auto) 0.7 H Eos # (Auto) 0.0 Baso # (Auto) 0.0 Abs Immat Gran (auto) 0.05 H Absolute Neuts (auto) 8.2 H Absolute Nucleated RBC 0.000 Nucleated RBC % 0.0 Sodium 140 Potassium 4.0 Chloride 109 H Carbon Dioxide 21 L Anion Gap 10 BUN 23 H Creatinine 0.90 Estim Creat Clear Calc 74 Estimated GFR > 60 Glucose 140 H Lactic Acid 2.4 H Calcium 9.2 Total Bilirubin 0.6 AST 53 ALT 36 Alkaline Phosphatase 105 Troponin I 8.140 H* NT-Pro-B Natriuret Pep 1350 H Total Protein 7.2 Albumin 4.1 Lipase 55 ASA Classification/Sedation ASA Classification/Sedation ASA Class: III Emergent: Yes Risks: Risks, benefits and alternatives explained and patient/family accepted plan for sedation. Patient re-evaluated immediately prior to sedation.
--- NOTE | 2024-11-24 05:51 | WPDHPUPDATE1 ---
History and Physical Update Update Date/Time: 11/24/24 05:51 History and Physical has been reviewed, including an updated exam of the patient. There are NO changes in the patient's condition. Risks, benefits, and alternatives have been discussed and questions answered. Patient agrees to proceed with procedure.
[2024-11-24 06:09] LABS: INR 1.2; Prothrombin Time 14.8 Seconds (11.1-14.7)
[2024-11-24 06:10] LABS: Partial Thromboplastin Time 42.5 Seconds (22.3-36.8)
[2024-11-24 06:22] LABS: D Dimer 3.39 ug/mL (<0.48)
[2024-11-24 06:39] LABS: Activated Clotting Time 262 SEC (74-137)
--- NOTE | 2024-11-24 06:51 | WPDCARDPROC ---
Cardiac Cath Procedure Note Date of procedure:: 11/24/24 Performing physician:: CATHETERIZATION LABORATORY REPORT Procedure Date: 11/24/2024 Referring Physician: Dr. Bocanegra Anesthesia: Versed and Fentanyl were ordered and given in my presence at 0556, procedure ended at 0636. Supervision of nurse, Maria Alejandra Jaquez monitored moderate sedation with 2mg Versed and 200mcg Fentanyl was provided for 40 minutes. Pre-op Diagnosis: inferior ST-elevation MT of delayed presentation Post-op Diagnosis: inferior ST-elevation MT of delayed presentation Procedure(s): Left heart catheterization with coronary angiography percutaneous coronary intervention coronary thrombectomy ultrasound-guided arterial access Angio-Seal closure Access Site: right common femoral artery Brief History and Clinical Indications: 84-year-old man with history of hypertension and thoracic aneurysm ( 4.7 cm in 2018) in presents with chest pain whose clinical presentation is consistent with delayed presentation inferior STEMI All risks, benefits and alternatives to left heart catheterization with or without percutaneous coronary intervention was discussed at length with the patient. Risk of complications including but not limited to bleeding, infection, arrhythmia, stroke, worsening kidney function, blood loss, groin hematoma, limb loss, emergency coronary artery bypass grafting, and even were discussed with the patient and all questions were answered. The patient understood and wished to proceed. Time out called, patient name, date of , medical record number, allergies, procedure performed, identify Provider Network Mgr, patient and staff member concurred with accurate data, procedure carried on. Findings: LEFT HEART CATHETERIZATION FINDINGS: 1. Left main: The left main coronary artery is widely patent. 2. Left anterior descending: The LAD provides 3 diagonal branches. D1 has mild diffuse stenosis. The remaining diagonal branches are small. The mid LAD has diffuse 30-40% stenosis. 3. Left circumflex: The left circumflex artery has luminal irregularities. The vessel provides 2 OM branches that are small and diminutive. 4. Right coronary artery: The RCA is a large dominant vessel with a subtotal occlusion with angiographic evidence of thrombus. 5. Left ventricle: A. End-diastolic pressure 27 mmHg. B. LV gram performed in the MAORI and PAT projections. C. No significant gradient across aortic valve on catheter pullback. 6. Opening AO pressure 99/69 and closing AO pressure 99/67 Description of Procedure: Informed consent signed and placed in the chart. Patient transferred to geophysical laboratory director room. Prepped and draped in usual sterile fashion. 2% lidocaine in right groin area. Micropuncture needle used to access right common femoral artery with Seldinger technique under fluoroscopic and ultrasound guidance. J wire advanced, micropuncture cannula placed, and exchanged for 6-FR sheath. JL4 diagnostic catheter was unable to reach the LMCA and exchanged for JL5 diagnostic which did engaged the Left Main Coronary Artery. JR4 Guide catheter engaged Right Coronary Artery. Multiple orthogonal angiogram obtained and reviewed Procedure Description for PCI: Heparin was used for anticoagulation (ACT maintained above 250) Patient loaded with heparin at 70 units/kg. 0.014 Runthrough coronary wire was passed in to the distal RCA. CAT Rx penumbra thrombectomy device was used to aspirate thrombus. The results were suboptimal therefore a 2.0 x 15 mm balloon was used to pre-dilated lesion with resulting no reflow phenomena. The balloon did yielded some 2 bolus doses of intracoronary nicardipine 250 mcg and 1 bolus of intracoronary nitroglycerin 100 mcg was delivered after patient was started on epinephrine 5 microgram/minute for his hypotension (70s/50s) and 1 time dose of phenylephrine 100 mcg IV push. A 3.5 x 18mm [place] LAI was then rapidly delivered and deployed at 15atm with excellent angiographic results after delivery of another 1 time bolus intracoronary nitroglycerin 100mcg. Intracoronary equipment was removed under fluoroscopy and follow-up angiograms showed an excellent result. Pre-procedure - ABY 2 flow Post-procedure - ABY 3 flow No angiographic complications identified. At this time given his delayed presentation and harsh holosystolic murmur in the lower sternal border, and LV-gram was pursued in the PAT projection that showed a VSD along the basilar inferior wall that was also confirmed on MAORI projection view. At this time, patient was weaned off of epinephrine drip and hemodynamically stable. His baseline lactic acid drawn in the emergency room is 2.4. Decision was made to obtain the LVEDP pressure which was 27 mm Hg. Pullback across the aortic valve is performed which did not review any significant gradients. Right iliofemoral angiogram was performed showing adequate access site for closure device. Angio-Seal was used to achieve hemostasis. There was tract views at the end of the procedure that was treated manual pressure. There was no significant angiographic disease in the visualized portions of the right proximal SFA, SHAPER MACHINE HAND, external iliac artery. Assessment: Successful PCI aspiration thrombectomy assisted PCI to the mid RCA with a 3.5 x 18mm [place] LAI deployed at 15atm with excellent angiographic results. Post Operative Condition: Stable No significant blood loss Disposition: ICU with plans to transfer to [facility] Plan: Aspirin 81 mg p.o. daily. Plavix 75 mg p.o. daily. Atorvastatin 80 mg every evening. Given his ventricular septal defect along the basilar region of the inferior wall, he will be transferred to [facility]. In the meantime, he will be monitored in the ICU here with close attention to his vitals, urine output, and lab trends. Should he have decompensation, we will proceed with vasopressors/SWG and consider Impella CP. Accepting physician is Dr. Pineda at [facility] for CCU acceptance as of now. Jamar Arora Interventional Cardiology
--- NOTE | 2024-11-24 06:54 | PC.NURSE ---
Received report from seed analysis laboratory assistant RN Yue at 0626.
--- NOTE | 2024-11-24 07:00 | ADMGEN ---
This patient, Hilario Chilel, was admitted to Intensive Care Unit-3. Patient/family oriented to hospital policies and general routines including ID bracelet, bed and alarms, visiting hours, pain management, procedures, bathroom and other care routines, personal items, smoking policy, room service/diet, and visiting hours. Information on how to activate the Rapid Response Team has been discussed. Patient/Family are encouraged to report perceived risks to care and to ask questions if they do not understand what they are told or what they should do.
[2024-11-24 07:06] LABS: Reflex Lactic Acid Yes or No Add Lactic
--- NOTE | 2024-11-24 07:09 | ECG_ITS ---
Test Date: 2024-11-24 07:16:31 Measurements Intervals Blunt Rate: 103 P: 48 ND: 216 QRS: -12 QRSD: 117 T: -63 QT: 387 QTc: 509 Interpretive Statements SINUS TACHYCARDIA WITH FIRST DEGREE AV BLOCK LEFT VENTRICULAR HYPERTROPHY AND ST-T CHANGE INFERIOR INFARCT, RECENT ABNORMAL ECG Compared to ECG 11/24/2024 05:17:18 INFERIOR INFARCT- NOW RECENT Electronically Signed On 11-24-2024 08:34:32 CDT by Chapin Chung D.O.
--- NOTE | 2024-11-24 07:30 | ADMGEN ---
This patient, Hilario Chilel, was admitted to Intensive Care Unit-3 at 0702. Patient/family oriented to hospital policies and general routines including ID bracelet, bed and alarms, visiting hours, pain management, procedures, bathroom and other care routines, personal items, smoking policy, room service/diet, and visiting hours. Information on how to activate the Rapid Response Team has been discussed. Patient/Family are encouraged to report perceived risks to care and to ask questions if they do not understand what they are told or what they should do.
--- NOTE | 2024-11-24 08:08 | PM.DS ---
DS: Admitting Diagnosis Discharge Date 11/24/2024 Admitting Diagnosis Inferior ST-elevation NC of delayed presentation DS: Discharge Diagnosis Discharge Diagnosis Plan Will be transferred to [facility] for further evaluation of ventricular septal defect resulting from inferior ST-elevation NC DS: Summary Hospital Course Reason for hospitalization: Chest pain Hospital Course: 84-year-old man with hypertension and thoracic aneurysm (4.7 cm 2018) presented chest pain. The chest started 3 days ago it has become unstable last 2 days with resulting persistent chest discomfort is the evening prompting eventual presentation to the emergency room this morning found to be having chest discomfort, tachycardic, tachypneic, hypoxic requiring 2 L nasal cannula and inferior ST-elevation NC with Q-waves which is consistent with late presentation NC. given his clinical presentation, he was brought to the cardiac laborer high density press emergently found to have subtotal occlusion of the right coronary artery which was treated with aspiration thrombectomy and stenting. Given his physical examination revealed harsh holosystolic murmur in the lower sternal borders, a left ventriculogram was pursued showing evidence of ventricular septal defect along the basilar region of the inferior wall. Throughout the cardiac catheterization and PCI, he did require 5 microgram/minute of epinephrine which was weaned off at the end of the case with stable vitals. He was ventrally transferred to the ICU for continue monitoring while plans of being set up to transfer to [facility] for evaluation of is acquired ventricular septal rupture. Currently he is hemodynamically stable without any significant chest discomfort. He is breathing on room air now without supplemental oxygen requirements. Status at Discharge Functional status at discharge: bed bound Overall status at discharge: patient is not back to baseline Time Spent with Patient Time attestation: Total time spent providing and/or coordinating discharge services: Time spent: Greater than 30 minutes Exam Const: General: comfortable HENMT: Mouth: Yes moist mucous membranes Eyes: EOM: EOMs intact bilaterally Neck: Neck: no JVD Resp: Effort & Inspection: normal respiratory effort Auscultation: clear to auscultation bilaterally Cardio: Rate: tachycardic Rhythm: regular rhythm Heart sounds: Murmur heart sound present Other: Harsh holosystolic murmur in the lower sternal borders Extrem: General: no pedal edema DS: Data Data Completed and Pending Labs on day of discharge: Labs from last 24 hours 11/24/24 11/24/24 11/24/24 07:27 06:32 04:53 WBC 9.8 RBC 4.33 L Hgb 12.4 L Hct 38.5 L MCV 88.9 MCH 28.6 MCHC 32.2 RDW 14.1 Plt Count 231 MPV 9.3 Immature Gran % (Auto) 0.5 Neut % (Auto) 83.6 H Lymph % (Auto) 8.7 L [place] % (Auto) 6.7 Eos % (Auto) 0.2 Baso % (Auto) 0.3 Lymph # (Auto) 0.85 L [place] # (Auto) 0.7 H Eos # (Auto) 0.0 Baso # (Auto) 0.0 Abs Immat Gran (auto) 0.05 H Absolute Neuts (auto) 8.2 H Absolute Nucleated RBC 0.000 Nucleated RBC % 0.0 PT 14.8 H INR 1.2 APTT 42.5 H Activ Coag Time Kaolin 262 H D-Dimer 3.39 H Sodium 140 Potassium 4.0 Chloride 109 H Carbon Dioxide 21 L Anion Gap 10 BUN 23 H Creatinine 0.90 Estim Creat Clear Calc 74 Estimated GFR > 60 Glucose 140 H Lactic Acid 2.0 Calcium 9.2 Total Bilirubin 0.6 AST 53 ALT 36 Alkaline Phosphatase 105 Troponin I 10.600 H* D 8.140 H* NT-Pro-B Natriuret Pep Total Protein 7.2 Albumin 4.1 Lipase 55 11/24/24 04:51 WBC RBC Hgb Hct MCV MCH MCHC RDW Plt Count MPV Immature Gran % (Auto) Neut % (Auto) Lymph % (Auto) [place] % (Auto) Eos % (Auto) Baso % (Auto) Lymph # (Auto) [place] # (Auto) Eos # (Auto) Baso # (Auto) Abs Immat Gran (auto) Absolute Neuts (auto) Absolute Nucleated RBC Nucleated RBC % PT INR APTT Activ Coag Time Kaolin D-Dimer Sodium Potassium Chloride Carbon Dioxide Anion Gap BUN Creatinine Estim Creat Clear Calc Estimated GFR Glucose Lactic Acid 2.4 H Calcium Total Bilirubin AST ALT Alkaline Phosphatase Troponin I NT-Pro-B Natriuret Pep 1350 H Total Protein Albumin Lipase Discharge Plan Discharge Attending physician on discharge: Jamar Arora Discharging Clinician: Jamar Arora Anticipated Discharge Date/Time: 11/24/24 12:00 Patient Disposition: Other Activity: other - see discharge instructions Diet: heart healthy Wound Care Instructions: keep dressing dry Patient Instructions: Antibiotic Form, Coronary Intravascular Stent Placement (GEN), Angio-Seal (DC), Left Heart Catheterization (DC), Left Heart Catheterization (GEN) Patient Language: Lebanese Stand Alone Forms: General Discharge Information Follow-up/Referrals: Jamar Arora MD [Physician] - Discharge Medications: New aspirin 81 mg Tablet,Delayed Release (Dr/Ec) 81 mg PO QAM Qty: 90 3RF atorvastatin 40 mg Tablet 80 mg PO EVENING Qty: 180 3RF clopidogrel 75 mg Tablet 75 mg PO QAM Qty: 90 3RF Continued (DME) Compression stockings See Rx Instructions .Route .MEDSUPPLY Qty: 1 0RF Rx Instructions: As directed Discontinued zinc 50 mg tablet 50 mg PO DAILY finasteride 5 mg tablet 5 mg PO DAILY [employer] 1.5 billion cell capsule PO .qd [place] Saline 0.65 % drops 2 drp intranasal .qd PRN diclofenac potassium 50 mg tablet 50 mg PO DAILY PRN (Reason: pain) Qty: 180 1RF Garcinia Cambogia 200-500 mcg-mg Tablet 1 tablet PO TID hydrocortisone 2.5 % cream 1 applic TOPICAL BID PRN (Reason: Itching) PreserVision AREDS-2 250-90-40-1 mg Capsule 1 tablet PO BID hydroxyzine pamoate 50 mg capsule 50 mg PO BID PRN (Reason: itching) Qty: 60 3RF Rx Instructions: tablets please furosemide 20 mg tablet See Rx Instructions .ROUTE .COMPLEX Qty: 120 1RF Dose Instruction: TAKE 2 TABLETS BY MOUTH IN THE MORNING NEEDED FOR EDEMA OR DIRECTED BY PHYSICIAN Rx Instructions: TAKE 2 TABLETS BY MOUTH IN THE MORNING NEEDED FOR EDEMA OR DIRECTED BY PHYSICIAN doxazosin 8 mg tablet See Rx Instructions .ROUTE .COMPLEX Qty: 90 1RF Dose Instruction: TAKE 1 TABLET BY MOUTH AT BEDTIME Rx Instructions: TAKE 1 TABLET BY MOUTH AT BEDTIME losartan 100 mg tablet See Rx Instructions .ROUTE .COMPLEX Qty: 90 1RF Dose Instruction: TAKE 1 TABLET BY MOUTH IN THE MORNING Rx Instructions: TAKE 1 TABLET BY MOUTH IN THE MORNING potassium chloride 10 mEq tablet extended release 10 meq PO QAM Qty: 90 1RF clonidine HCl 0.1 mg tablet 0.1 mg PO DAILY PRN (Reason: hypertensive emergency) Qty: 90 1RF Date of admission: 11/24/24 06:36 Primary Care Provider: Ludmila Gore Admitting Provider: Rosas Deleon Attending physician on admission: Rosas Deleon Condition: Guarded Prognosis
--- NOTE | 2024-11-24 08:38 | WPDCNINT ---
Assessment and Plan Assessment and plan (1) ST elevation DC (STEMI): Code(s): I21.3 - ST elevation (STEMI) myocardial infarction of unspecified site Status: Acute Assessment and Plan: 11/24: Patient presented with chest pain ongoing for the last 3 days with increasing worsening over the last 2 days and patient was unable to sleep 1 day prior to admission that prompted him to come to the ER. -EKG showed ST elevations in the inferior leads with reciprocal changes in the high lateral leads. -cardiology took the patient a laboratory asst he was found to have angiographically a occluded mid RCA status post PCI with LAI x1 with good angiographic results post catheterization. -patient was found to have a ventricular septal defect for which she is currently transferred to [facility] for further management/VSD closure -hemodynamically stable, patient did require epinephrine when he was in the cardiac laboratory asst for hypotension. Epinephrine was turned off in the laboratory asst after coronary perfusion blood pressures improved. (2) Ventricular septal defect: Code(s): Q21.0 - Ventricular septal defect Status: Acute Assessment and Plan: Patient being transferred to [facility] for VSD closure device (3) HTN (hypertension): Qualifiers: Hypertension type: essential hypertension Qualified Code(s): I10 - Essential (primary) hypertension Code(s): I10 - Essential (primary) hypertension Status: Acute Assessment and Plan: Hold antihypertensives for now as patient is status post inferior DC, also required some epinephrine during the cardiac catheterization. Epinephrine was turned off in the laboratory asst. (4) BPH (benign prostatic hyperplasia): Code(s): N40.0 - Benign prostatic hyperplasia without lower urinary tract symptoms Status: Acute Assessment and Plan: Patient on doxazosin, finasteride, currently on hold Plan DVT prophylaxis: Status post cardiac catheterization Stress ulcer prophylaxis: Not indicated Nutrition: NPO for now Code Status: Full code Critical Care Time Spent: 45 minutes Discussed with patient, spouse and other family members in the room and updated them with patient's condition and plan of care. They are aware that the patient has been accepted to [facility] and is a bed available in awaiting ambulance. Due to a high probability of clinically significant, life threatening deterioration, the patient required my highest level of preparedness to intervene emergently and I personally spent this critical care time directly and personally managing the patient. This critical care time included obtaining a history; examining the patient; pulse oximetry; ordering and review of studies; arranging urgent treatment with development of a management plan; evaluation of patient's response to treatment; frequent reassessment; and discussions with other providers. It was exclusive of separately billable procedures and treating other patients and teaching time. Please see Assessment and Plan section and the rest of the note for further information on patient assessment and treatment This dictation may have been done utilizing a voice recognition system. Attempts have been made to correct errors. However, there may be uncorrected grammatical, spelling, and recognitions errors present. [employer] Operator Consult Note Consult date: 11/24/24 Reason for consult: Inferior ST-elevation DC status post LAI x1 to RCA, patient has a VSD and is going to be transferred to [facility] HPI: Hilario Chilel is a 84 year old male with past medical history of arthritis, history of BPH, bladder tumor, chronic GERD, obstructive sleep apnea, essential hypertension, thoracic aortic aneurysm 4.7 cm and 2018, lower extremity edema, wears compression stockings presented the ED on 11/24/2024 with complains of chest pain which has been ongoing for the last 3 days and has been progressively worsening, and taking longer time to resolve with rest. One day prior to admission patient's chest pain was constant and he was unable to sleep that prompted him to come to the ER via EMS. He did complain of slight shortness of breath, denies any nausea, vomiting, diaphoresis or radiation of the pain. Chest pain resolved and the ED, patient did have ST-elevation in the inferior leads, cardiology believe that the infarct was subacute and not experiencing angina. Patient had elevated troponins of 8.140. EKG did show ST elevation in the inferior leads with reciprocal ST depression in the high lateral leads. Patient was taken for to the cardiac catheterization, RCA was a subtotal occlusion with angiographic evidence of thrombus, status post PCI to mid RCA with a LAI x1. Patient does have a VSD along the basilar region of the inferior wall, patient be transferred to [facility] for further evaluation. Patient seen and examined the ICU this morning, is awake, alert, oriented, complains of mild chest discomfort unlike when he was undergoing. Denies any shortness of breath, nausea, vomiting, abdominal pain. Patient denies any tobacco use, alcohol or illicit drug use. Hemodynamically stable, good O2 sats on room air Review of Systems Review of Systems: All systems reviewed & are unremarkable except as noted in HPI and below PMFSH Past Medical History Medical History (Updated 11/24/24 @ 08:58 by Christiana Bocanegra MD) Lower leg edema Arthritis Bladder tumor BPH (benign prostatic hyperplasia) Chronic GERD CARMELINA (obstructive sleep apnea) HTN (hypertension) Thoracic aortic aneurysm 4.7 cm in 2018 Carpal tunnel syndrome Surgical History Surgical History (Updated 08/21/24 @ 10:01 by Ludmila Gore NP) History of appendectomy H/O knee surgery 2006 right knee replacement History of carpal tunnel surgery H/O sinus surgery 2006 papiloma removed History of nasal surgery History of back surgery H/O eye surgery Family History Family History Father Diabetes mellitus Heart attack Lung cancer Mother Family history of Alzheimer's disease Social History Social History Social History: Caffeine-Coffee Smoking packs per day: 1 Smoking cigarettes per day: 20.0 Years smoked: 10 Smoking pack-years: 10.00 Smoking status: Former smoker Alcohol intake: former Alcohol use details: SOCIALLY IN PAST Substance use: never Do You Feel Safe in your Home?: Yes Lack of Transportation: No Lack of Food: Never True Current Housing: I Have Housing Concerned About Future Housing: No Difficulty Paying Gas/Electric Bills: No Difficulty Paying for Meds: No Currently Unemployed: No Education: High School Diploma/GED Difficulty w/ Childcare or Family Care: No Living arrangements: with family Additional living arrangements comments: Gender identity (if verbalized by the patient): Male Spiritual care concerns: No Meds Home Medications and Allergies Home Medications ?Medication ?Instructions ?Recorded ?Confirmed ?Type zinc 50 mg tablet 50 mg PO DAILY 05/07/20 08/21/24 History hydrocortisone 2.5 % topical cream 1 applic topical BID PRN Itching 09/11/20 08/21/24 History vit C 250 mg-vit E 90 mg-zinc 40 1 tablet PO BID 09/11/20 08/21/24 History mg-copper 1 ga-sseelw-cjhypu capsule (PreserVision AREDS-2) finasteride 5 mg tablet 5 mg PO DAILY 04/27/21 08/21/24 History Lactobacills gasseri-Bifidobac cap PO .qd 10/20/21 08/21/24 History bifidum,longum 1.5 billion cell capsule (V Wave) sodium chloride 0.65 % nasal drops 2 drp intranasal .qd PRN 10/20/21 08/21/24 History ([place] Saline) diclofenac potassium 50 mg tablet 50 mg PO DAILY PRN pain #180 tabs 02/19/24 08/21/24 Rx hydroxyzine pamoate 50 mg capsule 50 mg PO BID PRN itching #60 caps 04/29/24 08/21/24 Rx doxazosin 8 mg tablet See Rx Instructions .Route 09/25/24 Rx .COMPLEX #90 tabs losartan 100 mg tablet See Rx Instructions .Route 09/25/24 Rx .COMPLEX #90 tabs potassium chloride 10 mEq 10 meq PO QAM #90 tabs 10/22/24 Rx tablet,extended release Compression stockings #1 ea 10/28/24 Rx clonidine HCl 0.1 mg tablet 0.1 mg PO DAILY PRN hypertensive 11/14/24 Rx emergency #90 tabs furosemide 20 mg tablet 20 mg PO DAILY 11/24/24 11/24/24 History hydrochlorothiazide 12.5 mg capsule 12.5 mg PO DAILY 11/24/24 11/24/24 History Allergies Allergy/AdvReac Type Severity Reaction Status Date / Time naproxen Allergy Unknown Hives Verified 11/24/24 04:57 solifenacin Allergy Dry Mouth Verified 11/24/24 04:57 Vital Signs Vital Signs - 24 hr 11/24/24 04:38 11/24/24 04:49 11/24/24 04:54 Temperature 97.8 F Pulse Rate 116 H 112 H Pulse Rate [Right Pedal (Dorsalis Pedis) Palpation] Respiratory Rate 14 Blood Pressure 123/91 H Pulse Oximetry 100 98 Oxygen Delivery Room Air Room Air 11/24/24 04:54 11/24/24 07:09 11/24/24 07:29 Temperature 98.2 F Pulse Rate 113 H 114 H 103 H Pulse Rate [Right Pedal (Dorsalis Pedis) Palpation] 104 H Respiratory Rate 27 H 24 H 18 Blood Pressure 123/85 100/74 100/74 Pulse Oximetry 100 98 97 Oxygen Delivery 11/24/24 07:29 Temperature Pulse Rate 103 H Pulse Rate [Right Pedal (Dorsalis Pedis) Palpation] Respiratory Rate Blood Pressure 106/74 Pulse Oximetry Oxygen Delivery Exam Narrative: General: Pleasant gentleman in no acute distress HEENT:? Pupils equal and reactive, sclera is clear Neck:? Supple Respiratory:? Clear to auscultation bilaterally, no wheezing, adequate air entry Cardiac:? S1-S2 normal, sinus tachycardia Abdomen:? Soft, nontender, obese, nondistended, normoactive bowel sounds Extremities:? Right groin site without any evidence of ecchymosis or hematoma Neuro:? Patient is awake, alert, oriented x3, able to answer all questions and follows simple commands in all extremities Skin:? Warm and dry Psych:? Normal mentation and affect Results Labs 11/24/24 04:53 11/24/24 04:53 Labs: Short CBC 11/24/24 Range/Units 04:53 WBC 9.8 (4.5-10.0) K/mm3 Hgb 12.4 L (14.0-18.0) g/dL Hct 38.5 L (42.0-52.0) % Plt Count 231 (150-375) k/mm3 BMP 11/24/24 04:53 Sodium 140 Potassium 4.0 Chloride 109 H Carbon Dioxide 21 L BUN 23 H Creatinine 0.90 Glucose 140 H Calcium 9.2 Cardiac Enzymes 11/24/24 11/24/24 Range/Units 04:53 07:27 Troponin I 8.140 H* 10.600 H* D (0.000-0.034) ng/mL Liver Function 11/24/24 Range/Units 04:53 Total Bilirubin 0.6 (0.2-1.3) mg/dL AST 53 (17-59) U/L ALT 36 (6-50) U/L Alkaline Phosphatase 105 (38-126) U/L Albumin 4.1 (3.5-5.1) g/dL Quality VTE Prophylaxis VTE prophylaxis: mechanical ordered Hospitalist MIPS Advance Care Plan I have confirmed that the patient's Advanced Care Plan is present, code status is documented, or surrogate decision maker is listed in patient medical record.: Yes Medication Reconciliation I have utilized all available resources to obtain, update and review the patients current medications (includes all prescriptions, OTC, herbals, cannabis, and nutritional supplements).: Yes
[2024-11-24] MEDS: SODIUM CHLORIDE 0.9% IV 1,000 ML 125 ML IV CONT (09:05)
--- NOTE | 2024-11-24 09:56 | PC.NURSE ---
[place] [id number] via [facility]
== END 2024-11-24 08:55 | disposition short-term general hospital (02) | DRG 322 ==
LOC: ANHED 05:36 → ANHICU 06:51
PROVIDERS: Admitting Provider Internal Medicine; Emergency Provider Student in an Organized Health Care Education/Training Program; PCP Nurse Practitioner; Visit Provider Internal Medicine
PROC: 4A023N7 Measurement of Cardiac Sampling and Pressure, Left Heart, Percutaneous Approach (ICD-10-PCS; CPT 93452; principal; 2024-11-24 04:50)
PROC: 027034Z Dilation of Coronary Artery, One Artery with Drug-eluting Intraluminal Device, Percutaneous Approach (ICD-10-PCS; CPT 92928; 2024-11-24 04:50)
PROC: 027034Z Dilation of Coronary Artery, One Artery with Drug-eluting Intraluminal Device, Percutaneous Approach (ICD-10-PCS; 2024-11-24 04:50)
DX: I21.19 ST elevation (STEMI) myocardial infarction involving other coronary artery of inferior wall (principal); I23.2 Ventricular septal defect as current complication following acute myocardial infarction; N40.0 Benign prostatic hyperplasia without lower urinary tract symptoms; M19.90 Unspecified osteoarthritis, unspecified site; K21.9 Gastro-esophageal reflux disease without esophagitis; G47.33 Obstructive sleep apnea (adult) (pediatric); D64.9 Anemia, unspecified; I10 Essential (primary) hypertension; I71.20 Thoracic aortic aneurysm, without rupture, unspecified; Z96.651 Presence of right artificial knee joint; Z90.49 Acquired absence of other specified parts of digestive tract; Z87.891 Personal history of nicotine dependence
CPT/HCPCS: 36415; 71045; 80053; 83605; 83690; 83880; 84484; 85025; 85380; 85610; 85730; 93005; 93458; 96365; 96366; 99291; A9270; C1725; C1757; C1760; C1769; C1874; C1887; C1894; C9606; G0269; J0171; J1644; J2003; J2250; J2305; J2371; J2404; J3010; J7030; J7040; J7060